=== PATIENT | female | born 1965 | race Caucasian/White ===

== ENCOUNTER 2020-03-07 13:44 | Outpatient (REF) | payer BC, SELFPAY | END 2020-03-07 13:45 | disposition home or self-care (01) | LOC: HO.HMGCLDS 13:44 | PROVIDERS: PCP Internal Medicine; Visit Provider Internal Medicine | DX: Z20.828 Contact with and (suspected) exposure to other viral communicable diseases (principal) | CPT/HCPCS: C9803; U0003 ==

== ENCOUNTER 2020-03-09 07:55 | Outpatient (REF) | payer BC, SELFPAY ==
[2020-03-09 12:26] LABS: Anion Gap 12 (12-20); Blood Urea Nitrogen 15 mg/dL (9-16); Calcium 8.7 mg/dL (8.4-10.2); Carbon Dioxide 27 mmol/L (22-29); Chloride 101 mmol/L (96-108); Cholesterol 169 mg/dL; Estimated Glomerular Filt Rate > 60; Glucose Fasting 121 mg/dL (60-99); HDL Cholesterol 59 mg/dL; LDL Cholesterol Calculated 92 mg/dl; Potassium 4.3 mmol/l (3.3-5.1); Sodium 136 mmol/L (135-145); Triglycerides 92 mg/dL
[2020-03-09 12:43] LABS: Estimated Average Glucose 137 mg/dL; Hemoglobin A1C 149.7031 umol/L; Hemoglobin A1c % 6.4 %
[2020-03-09 12:53] LABS: Creatinine Urine 48.34 mg/dL; Microalbum/Creatinine Ratio Ur 248.2 ug/mg cr
== END 2020-03-09 07:56 | disposition home or self-care (01) ==
LOC: HO.HMGCLDS 07:55
PROVIDERS: PCP Internal Medicine; Visit Provider Internal Medicine
DX: I10 Essential (primary) hypertension (principal); E78.9 Disorder of lipoprotein metabolism, unspecified; E13.9 Other specified diabetes mellitus without complications; Z91.09 Other allergy status, other than to drugs and biological substances
CPT/HCPCS: 80048; 80061; 82043; 83036

== ENCOUNTER 2020-08-07 13:01 | Outpatient (REF) | payer BC, SELFPAY | END 2020-08-07 13:02 | disposition home or self-care (01) | LOC: HO.HMGCLDS 13:01 | PROVIDERS: PCP Internal Medicine; Visit Provider Internal Medicine | DX: Z20.822 Contact with and (suspected) exposure to COVID-19 (principal) | CPT/HCPCS: C9803; U0003; U0005 ==

== ENCOUNTER → 2020-09-11 09:20 | Outpatient (REF) | payer BC, SELFPAY ==
--- NOTE | 2020-09-11 09:43 | CA_ITS ---
Transthoracic Echocardiogram Patient (Last, First, Middle): Irasema Lauren, Gender: Female Date of : 1965 Age: 54 Procedure Date: 09/11/2020 Procedure Type: Transthoracic Echocardiogram Location: OP Height: 162.56 cm Weight: 90.72 kg BSA: 1.96 m2 Heart Rate: bpm BP: 130 / 78 mmHg Software Packager: CASEY Referring MD: Jaqui Fofana MD Symptoms: R00.0 - Tachycardia, unspecified Study Quality: Fair ECG Rhythm: Sinus Conclusions: - The left ventricular systolic function is normal. The visually estimated ejection fraction is between 60-65%. - There is mild calcification of the aortic valve. - There is mild mitral annular calcification. Findings Procedure Information The patient declines contrast. Left Ventricle Normal left ventricular cavity size. There is normal left ventricular wall thickness. The left ventricular systolic function is normal. The visually estimated ejection fraction is between 60-65%. There is no evidence of regional wall motion abnormalities. Diastolic function is normal for age. Right Ventricle Normal right ventricular cavity size and systolic function. Atria Both atria are normal in size. Aortic Valve There is a normal trileaflet aortic valve. There is mild calcification of the aortic valve. There is no aortic valve stenosis. There is no aortic valve regurgitation. Mitral Valve There is mild mitral annular calcification. There is trace mitral valve regurgitation. There is no mitral valve stenosis. Pulmonic Valve The pulmonic valve was not well visualized. Tricuspid Valve Normal tricuspid valve structure. There is trace tricuspid valve regurgitation. The pulmonary artery systolic pressure is normal. Great Vessels The aortic annulus, sinuses of valsalva, and asc aorta are normal in size. Venous The inferior vena cava is normal in size and collapses greater than 50% with inspiration. Pericardium/Pleural There is no evidence of pericardial effusion. Prior Study Comparison No prior study available for comparison. Measurements 2D Linear Measurements IVSd: 0.80 0.6-0.9/0.6-1.0 cm LVIDd: 4.01 3.9-5.3/4.2-5.9 cm LVIDd Index: 2.05 2.4-3.2/2.2-3.1 cm/m2 LVIDs: 2.33 2.0-3.6 cm LVPWd: 0.82 0.7-1.1 cm Ao Root: 3.00 2.1-3.5 cm LA Diam: 3.50 2.7-3.8/3.0-4.0 cm LAIDs Index: 1.79 1.5-2.3 cm/m2 LV Mass: 118.43 67-162/88-224 g LV Mass Index: 60.42 43-95/49-115 g/m2 LVOT Diam: 2.00 3.0+(-)1.3 cm Mitral Valve MV Pk E: 1.19 MV PK A: 1.16 MV Decel Time: 191.00 E/A: 1.00 E'Lateral: 10.40 E'Medial: 8.16 E/E' Med: 14.60 E/E' Lat: 11.40 PHT: 56.00 MVA PHT: 3.93 Decel Tate: 6.23 Aortic Valve AoV Pk Leonardo: 1.68 AoV Mn Leonardo: 1.12 AoV VTI: 0.30 AoV Pk Grad: 11.00 Aov Mn Grad: 6.00 DELORES Cont.VTI: 2.73 LVOT LVOT Pk Leonardo: 1.50 LVOT Mn Leonardo: 1.00 LVOT VTI: 0.26 LVOT Pk Grad: 9.00 LVOT Mn Grad: 5.00 LVOT Diam: 2.00 LVOT Area: 3.14 Diastolic Function MV Pk E: 1.19 MV Pk A: 1.16 E/A: 1.00 E'Medial: 8.16 E/E' Med: 14.60 E' Laterial: 10.40 E/E' Lat: 11.40 Tricuspid Valve TR Pk Leonardo: 1.67 TR Pk Grad: 11.00 RA Press: 3.00 RVSP: 14.00 Great Vessels Aorta Ao Root-2D: 3.00 2.0-3.7 cm Ao Asc: 2.90 2.1-3.4 cm Updated in Other Vendor System with Status of Final Walter Orozco MD electronically signed on 09/11/2020 12:00:43 PM with status of Final
== END ==
LOC: HO.CARD 09:20
PROVIDERS: PCP Internal Medicine; Visit Provider Internal Medicine
DX: R00.0 Tachycardia, unspecified (principal); I10 Essential (primary) hypertension
CPT/HCPCS: 93306

== ENCOUNTER 2021-01-03 13:50 | Outpatient (REF) | payer BC, SELFPAY | END 2021-01-03 13:51 | disposition home or self-care (01) | LOC: HO.HMGCLDS 13:50 | PROVIDERS: PCP Internal Medicine; Visit Provider Internal Medicine | DX: Z13.89 Encounter for screening for other disorder (principal) ==

== ENCOUNTER 2021-01-08 07:19 | Outpatient (REF) | payer BC, SELFPAY ==
[2021-01-08 11:25] LABS: MANUAL DIFF FLAG NO
[2021-01-08 11:42] LABS: Basophils Percent Auto 0.5 % (0-2); Eosinophils Absolute Auto 0.2 X10*3/uL (0.0-0.4); Eosinophils Percent Auto 2.2 % (0-4); Hematocrit 36.1 % (37-47); Hemoglobin 11.9 g/dl (12.0-16.0); Imm Gran Abs Auto 0.02 X10*3/uL (0.00-0.03); Imm Gran Pct Auto 0.3 % (0.0-0.4); Lymphocytes Absolute Auto 2.3 X10*3/uL (1.2-4.9); Mean Corpuscular Hemoglobin 28.4 pg (27.0-33.0); Mean Corpuscular Volume 86.2 fL (80-98); Mean Platelet Volume 10.1 fL (9.4-12.3); Monocytes Absolute Auto 0.7 X10*3/uL (0.1-1.2); Monocytes Percent Auto 8.6 % (2-11); Neutrophils Absolute Auto 4.4 X10*3/uL (2.0-8.3); Neutrophils Percent Auto 58.4 % (45-73); Platelet Count 228 X10*3/uL (160-400); Red Blood Count 4.19 X10*6/uL (4.20-5.50); Red Cell Distribution Width 13.5 % (11.0-16.0); White Blood Count 7.6 X10*3/uL (4.8-10.8)
[2021-01-08 12:33] LABS: Alanine Aminotransferase 25 U/L (0-31); Albumin Level 4.1 g/dL (3.5-5.0); Alkaline Phosphatase 97 U/L (39-117); Anion Gap 13 (12-20); Aspartate Amino Transferase 27 U/L (5-31); Bilirubin Direct 0.2 mg/dL (0.0-0.5); Bilirubin Total 0.3 mg/dL (0.0-1.0); Blood Urea Nitrogen 14 mg/dL (9-16); Calcium 9.2 mg/dL (8.4-10.2); Carbon Dioxide 24 mmol/L (22-29); Chloride 104 mmol/L (96-108); Estimated Glomerular Filt Rate > 60; Glucose Random 131 mg/dL (60-115); Potassium 4.4 mmol/L (3.3-5.1); Sodium 137 mmol/L (135-145); Total Protein 6.6 g/dL (6.5-8.0)
[2021-01-08 12:47] LABS: Creatinine Urine 84.43 mg/dL; Microalbum/Creatinine Ratio Ur 215.5 ug/mg cr
[2021-01-08 13:03] LABS: Estimated Average Glucose 131 mg/dL; Hemoglobin A1c % 6.2 %
[2021-01-09 14:12] LABS: LDL Cholesterol Direct 97 mg/dL (<100)
== END 2021-01-08 07:20 | disposition home or self-care (01) ==
LOC: HO.HMGCLDS 07:19
PROVIDERS: PCP Internal Medicine; Visit Provider Internal Medicine
DX: R00.0 Tachycardia, unspecified (principal); I10 Essential (primary) hypertension; E13.9 Other specified diabetes mellitus without complications; E78.9 Disorder of lipoprotein metabolism, unspecified; Z91.09 Other allergy status, other than to drugs and biological substances
CPT/HCPCS: 36415; 80053; 82043; 82248; 83036; 83721; 85025

== ENCOUNTER 2021-07-04 11:15 | Outpatient (REF) | payer BC, SELFPAY ==
[2021-07-04 14:16] LABS: Creatinine Urine 135.54 mg/dL; Microalbum/Creatinine Ratio Ur 319.4 ug/mg cr
[2021-07-04 14:18] LABS: Estimated Average Glucose 137 mg/dL; Hemoglobin A1c % 6.4 %
[2021-07-04 14:27] LABS: Alanine Aminotransferase 29 U/L (0-31); Albumin Level 4.3 g/dL (3.5-5.0); Alkaline Phosphatase 116 U/L (39-117); Anion Gap 12 (12-20); Aspartate Amino Transferase 31 U/L (5-31); Bilirubin Total 0.4 mg/dL (0.0-1.0); Blood Urea Nitrogen 19 mg/dL (9-16); Carbon Dioxide 24 mmol/L (22-29); Chloride 104 mmol/L (96-108); Estimated Glomerular Filt Rate > 60; Glucose Random 134 mg/dL (60-115); Potassium 4.4 mmol/L (3.3-5.1); Sodium 136 mmol/L (135-145); Total Protein 7.2 g/dL (6.5-8.0)
[2021-07-04 14:32] LABS: TSH reflex Free T4 4.78 uIU/mL (0.32-4.0)
[2021-07-04 14:52] LABS: Calcium 9.7 mg/dL (8.4-10.2)
[2021-07-04 15:49] LABS: Free T4 (Free Thyroxine) 1.13 ng/dL (0.71-1.85)
[2021-07-05 07:21] LABS: LDL Cholesterol Direct 97 mg/dL (<100)
== END 2021-07-04 11:16 | disposition home or self-care (01) ==
LOC: HO.HMGCLDS 11:15
PROVIDERS: Visit Provider Internal Medicine
DX: Z00.01 Encounter for general adult medical examination with abnormal findings (principal); E10.29 Type 1 diabetes mellitus with other diabetic kidney complication; E78.9 Disorder of lipoprotein metabolism, unspecified; I10 Essential (primary) hypertension; R80.9 Proteinuria, unspecified; Z91.09 Other allergy status, other than to drugs and biological substances
CPT/HCPCS: 36415; 80053; 82043; 83036; 83721; 84439; 84443

== ENCOUNTER 2021-07-30 11:56 | Outpatient (REF) | payer BC, SELFPAY ==
[2021-07-30 14:14] LABS: Anion Gap 16 (12-20); Blood Urea Nitrogen 17 mg/dL (9-16); Calcium 9.7 mg/dL (8.4-10.2); Carbon Dioxide 23 mmol/L (22-29); Chloride 103 mmol/L (96-108); Estimated Glomerular Filt Rate > 60; Glucose Random 142 mg/dL (60-115); Potassium 4.5 mmol/L (3.3-5.1); Sodium 137 mmol/L (135-145)
[2021-07-30 15:21] LABS: Free T4 (Free Thyroxine) 0.97 ng/dL (0.71-1.85)
== END 2021-07-30 11:57 | disposition home or self-care (01) ==
LOC: HO.HMGCLDS 11:56
PROVIDERS: PCP Internal Medicine; Visit Provider Internal Medicine
DX: E13.9 Other specified diabetes mellitus without complications (principal); E78.9 Disorder of lipoprotein metabolism, unspecified; I10 Essential (primary) hypertension; R00.0 Tachycardia, unspecified; Z91.09 Other allergy status, other than to drugs and biological substances; R79.89 Other specified abnormal findings of blood chemistry
CPT/HCPCS: 36415; 80048; 84439; 84443

== ENCOUNTER 2021-10-08 11:16 | Outpatient (REF) | payer BC, SELFPAY | END 2021-10-08 11:17 | disposition home or self-care (01) | LOC: HO.HMGCLDS 11:16 | PROVIDERS: Visit Provider Internal Medicine | DX: Z13.89 Encounter for screening for other disorder (principal) ==

== ENCOUNTER 2021-10-09 09:35 | Outpatient (REF) | payer BC, SELFPAY ==
[2021-10-09 11:57] LABS: Estimated Average Glucose 134 mg/dL; Hemoglobin A1c % 6.3 %
[2021-10-09 12:21] LABS: TSH reflex Free T4 3.75 uIU/mL (0.32-4.0)
[2021-10-09 12:56] LABS: Alanine Aminotransferase 26 U/L (0-31); Albumin Level 4.3 g/dL (3.5-5.0); Alkaline Phosphatase 105 U/L (39-117); Anion Gap 13 (12-20); Aspartate Amino Transferase 26 U/L (5-31); Bilirubin Total 0.4 mg/dL (0.0-1.0); Blood Urea Nitrogen 16 mg/dL (9-16); Calcium 9.1 mg/dL (8.4-10.2); Carbon Dioxide 23 mmol/L (22-29); Chloride 104 mmol/L (96-108); Estimated Glomerular Filt Rate > 60; Glucose Random 165 mg/dL (60-115); Potassium 4.1 mmol/L (3.3-5.1); Sodium 136 mmol/L (135-145)
[2021-10-11 08:21] LABS: LDL Cholesterol Direct 93 mg/dL (<100)
== END 2021-10-09 09:36 | disposition home or self-care (01) ==
LOC: HO.HMGCLDS 09:35
PROVIDERS: Visit Provider Internal Medicine
DX: E13.9 Other specified diabetes mellitus without complications (principal); E78.9 Disorder of lipoprotein metabolism, unspecified; I10 Essential (primary) hypertension; R79.89 Other specified abnormal findings of blood chemistry
CPT/HCPCS: 36415; 80053; 83036; 83721; 84443

== ENCOUNTER 2022-07-10 13:12 | Outpatient (REF) | payer OTHER, SELFPAY ==
[2022-07-10 16:31] LABS: MANUAL DIFF FLAG NO
[2022-07-10 16:42] LABS: Basophils Percent Auto 0.3 % (0-2); Eosinophils Absolute Auto 0.1 X10*3/uL (0.0-0.4); Eosinophils Percent Auto 1.1 % (0-4); Hematocrit 38.3 % (37.0-47.0); Hemoglobin 12.9 g/dl (12.0-16.0); Imm Gran Abs Auto 0.02 X10*3/uL (0.00-0.03); Imm Gran Pct Auto 0.3 % (0.0-0.4); Lymphocytes Absolute Auto 1.5 X10*3/uL (1.2-4.9); Lymphocytes Percent Auto 19.3 % (20-40); Mean Corpuscular HGB Conc 33.7 g/dl (31.0-35.0); Mean Corpuscular Hemoglobin 28.4 pg (27.0-33.0); Mean Corpuscular Volume 84.4 fL (80.0-98.0); Mean Platelet Volume 10.2 fL (9.4-12.3); Monocytes Absolute Auto 0.6 X10*3/uL (0.1-1.2); Neutrophils Absolute Auto 5.6 x10*3/uL (2.0-8.3); Platelet Count 228 X10*3/uL (160-400); Red Blood Count 4.54 X10*6/uL (4.20-5.50); Red Cell Distribution Width 13.4 % (11.0-16.0); White Blood Count 7.9 X10*3/uL (4.8-10.8)
[2022-07-10 16:49] LABS: Estimated Average Glucose 134 mg/dL; Hemoglobin A1c % 6.3 %
[2022-07-10 17:01] LABS: Alanine Aminotransferase 23 U/L (0-31); Albumin Level 4.2 g/dL (3.5-5.0); Alkaline Phosphatase 99 U/L (39-117); Anion Gap 13 (12-20); Aspartate Amino Transferase 28 U/L (5-31); Bilirubin Total 0.4 mg/dL (0.0-1.0); Blood Urea Nitrogen 15 mg/dL (9-16); Calcium 9.3 mg/dL (8.4-10.2); Carbon Dioxide 25 mmol/L (22-29); Chloride 105 mmol/L (96-108); Estimated Glomerular Filt Rate > 60; Glucose Random 145 mg/dL (60-115); Potassium 4.7 mmol/L (3.3-5.1); Sodium 138 mmol/L (135-145); Total Protein 6.8 g/dL (6.5-8.0)
[2022-07-10 17:17] LABS: TSH reflex Free T4 3.19 uIU/mL (0.32-4.0)
[2022-07-12 00:09] LABS: LDL Cholesterol Direct 102 mg/dL (<100)
== END 2022-07-10 13:13 | disposition home or self-care (01) ==
LOC: HO.HMGCLDS 13:12
PROVIDERS: PCP Internal Medicine; Visit Provider Internal Medicine
DX: E03.8 Other specified hypothyroidism (principal); E10.29 Type 1 diabetes mellitus with other diabetic kidney complication; E66.09 Other obesity due to excess calories; E78.9 Disorder of lipoprotein metabolism, unspecified; I10 Essential (primary) hypertension; R80.9 Proteinuria, unspecified
CPT/HCPCS: 36415; 80053; 83036; 83721; 84443; 85025

== ENCOUNTER 2023-02-12 13:24 | Outpatient (AMB) | payer OTHER, SELFPAY ==
--- NOTE | 2023-02-12 13:26 | A.OFFPC_ITS ---
Vital Signs 3 02/12/23 13:27 Height 5 ft 1 in Weight 199 lb BMI 37.6 BP 128/70 Blood Pressure Location Lt brachial Position Sitting Pulse 92 Pulse Source Pulse Oximeter Pulse Oximetry (%) 99 Oxygen Delivery Method Room Air Intake Visit Reasons: 3 MON FUP DM- NEEDS PHQ-9 Allergies No Known Drug Allergies [NO KNOWN DRUG ALLERGIES] Allergy (Mild, Verified 02/12/23 13:26) NONE Seasonal Allergy (Unknown, Uncoded 07/04/21 10:52) unknown Medication List - Last Reconciled 02/12/23 by Jaqui Fofana MD amlodipine 10 mg PO DAILY ezetimibe 10 mg PO DAILY glipizide-metformin 2.5-250 mg 1 tab PO DAILY levothyroxine 25 mcg PO DAILY 90 days lisinopril 40 mg PO DAILY pravastatin 40 mg PO DAILY 90 days Tobacco use date assessed: 02/12/23 Dental Screening Dental Screen Date: 02/12/23 Did you have a dental visit in the last 12 months?: No Did you have a dental problem in the last 6 months where you did not have access to dental care?: No Was dental information given to patient?: Patient has dentist HPI 3 MON FUP DM- NEEDS PHQ-9 2 HPI0 Details Patient is a 57-year-old female came in today for follow-up appointment She has lost her recently 2 liver cancer, patient is going through a rough time and is grieving Feeling depressed and cry easily. She does have a family support I am starting her on Lexapro 10 mg daily She said that she will be seeing a therapist her daughter is going to make the appointment. Hypertension: Blood pressure is stable patient is on amlodipine 10 mg, and lisinopril 40 mg, tolerating medication no side effects. Diabetes mellitus: Continue glipizide metformin 2.5 mg-250 mg once a day she is due for hemoglobin A1c Hypothyroidism: TSH stable with levothyroxine 25 mg Lipid disorder: Patient is on pravastatin 40 mg and diet-controlled along with Zetia. BMI is elevated, patient is having difficulty losing weight. Follow-up 3 months Labs to be done today Flu vaccine was given today [facility] Medical History Diabetes 1.5, managed as type 2 Environmental allergies Hypertension, essential Lipid disorder Surgical History History of section Family History Father Rheumatoid arthritis Mother HTN (hypertension) CVD (cardiovascular disease) Diabetes mellitus Brother No problems noted. Daughter No problems noted. Daughter No problems noted. Maternal Grandfather No problems noted. Maternal Grandmother No problems noted. Paternal Grandfather No problems noted. Paternal Grandmother No problems noted. Social History Housing: Apartment Alcohol intake: former Patient Tobacco Use Status: Never used Tobacco e-Cigarette/Vaping Use: Never Used service: No Current occupational status: unemployed and other (homemaker) Cognitive needs: No Hearing needs: No Vision needs: Yes Questionnaire PHQ-9 Over the last 2 weeks, how often have you been bothered by any of the following problems? 1. Little interest or pleasure in doing things: more than half the days 2. Feeling down, depressed, or hopeless: more than half the days 3. Trouble falling or staying asleep, or sleeping too much: more than half the days 4. Feeling tired or having little energy: more than half the days 5. Poor appetite or overeating: not at all 6. Feeling bad about yourself - or that you are a failure or have let yourself or your family down: more than half the days 7. Trouble concentrating on things, such as reading the newspaper or watching television: not at all 8. Moving or speaking so slowly that other people could have noticed. Or the opposite - being so fidgety or restless that you have been moving around a lot more than usual: not at all 9. Thoughts that you would be better off or of hurting yourself in some way: not at all Total score: 10 Depression Screening Interpretation: Positive Depression Screening Follow-up: Existing condition and In treatment Depression Screening Done: Yes 15066 - PHQ-9 Billing: Yes Source: Developed by Drs. Orlin Bone, Kalani Gregory, Liang Littlejohn and colleagues, with an educational jeffrey from [employer]. Thrive Questionnaire Date Thrive assessed: 02/12/23 I am a: Patient What is your living situation today?: I have a steady place to live Within the past 12 months, did the food you bought not last and you didn't have the money to get more?: Never true Within the past 12 months, did you worry whether your food would run out before you got money to buy more?: Never true Do you have trouble paying for medicines?: No Do you have trouble getting transportation to medical appointments?: Yes Do you have trouble paying your heating and electricity bill?: No Do you have trouble taking care of your child, family member or friend?: No Do you have trouble with day-to-day activities such as bathing, preparing meals, shopping, managing finances, etc.?: No Are you currently unemployed and looking for a job?: Yes Are you interested in more education?: No AUDIT C Alcohol Use Questionnaire (AUDIT-C) 1. How often do you have a drink containing alcohol?: Never 3. How often do you have six or more drinks on one occasion?: Never Total Score: 0 Score Reviewed/Action Taken: Yes MAIDA-7 AMB Questionnaire MAIDA-7 Date MAIDA - 7 assessed: 02/12/23 Feeling nervous, anxious, or on edge: 3 = Nearly every day Not being able to stop or control worryin = Nearly every day Worrying too much about different things: 3 = Nearly every day Trouble relaxin = More than half the days Being so restless that it is hard to sit still: 3 = Nearly every day Becoming easily annoyed or irritable: 3 = Nearly every day Feeling afraid as if something awful might happen: 0 = Not at all Total MAIDA-7 score (0-4 normal; 5-9 mild; 10-14 moderate; 15-21 severe): 17 Source: Developed by Drs. Orlin Bone, Kalani Gregory, Liang Littlejohn and colleagues, with an educational jeffrey from [employer]. MAIDA-7 Assessment Billing MAIDA-7 Assessment Tool: MAIDA-7 Assessment 63939 Review of Systems Const Denies chills and Denies fever(s) ENT Denies epistaxis and Denies nasal discharge Card Denies chest pain Resp Denies chest congestion, Denies cough and Denies hemoptysis GI Denies diarrhea and Denies nausea Skin/Breast Denies rash Neuro Reports no additional complaints Psych Reports no additional complaints Endo Reports no additional complaints Physical exam (Primary Care) Vital Signs: Last Vital Signs Pulse 92 02/12/23 13:27 BP 128/70 02/12/23 13:27 Pulse Ox 99 02/12/23 13:27 Oxygen Delivery Method Room Air 02/12/23 13:27 BMI result Body Mass Index 37.6 Tobacco/Smoking Status: Tobacco use Status Tobacco use date assessed 02/12/23 02/12/23 13:27 Patient Tobacco Use Status Never used Tobacco 02/12/23 13:27 e-Cigarette/Vaping Use Never Used 02/12/23 13:27 PHQ-9: PHQ-9 Score PHQ-9: Total score 10 02/12/23 14:17 Depression Screening Interpretation: Positive Depression Screening Follow-up: Existing condition and In treatment Thrive Assessment: Date of Thrive Assessment Date Thrive assessed 02/12/23 02/12/23 14:17 Const General: cooperative, comfortable and no acute distress Orientation/consciousness: patient oriented x3 HENMT Head: Yes normocephalic Eyes General: appearance normal, both eyes and all related structures Neck Neck: Yes supple Neck images: 2 1. Large scalp cyst Resp Effort & Inspection: normal respiratory effort, no cough and no stridor Cardio Rhythm: regular rhythm Heart sounds: S1 normal heart sound present and S2 normal heart sound present Skin General skin exam: turgor normal Neuro General: patient oriented x3, tone normal and moves all extremities Extrem Right lower extremity: no edema Left lower extremity: no edema Office Procedures Flu Questionnaire Does the patient have a severe egg allergy?: No Does the patient have severe life threatening allergies?: No Does the patient have a fever or illness today?: No Has the patient ever had Guillain-[place]bardston Syndrome?: No Has the patient ever had any past reaction to a flu shot?: No Immunizations flu vacc [id number] 6mos up(PF) 60 mcg(15 mcgx4)/0.5 mL IM syringe Performing Provider: Jaqui Fofana MD [place] [facility] [place] [facility] Administered by: Jhoan Winn CMA on 02/12/23 13:56 2 Dose Route Admin Location Dispensed Lot Number Expiration Date N[employer] Photography Intern 0.5 mL IM Right Deltoid 0.5 mL [id number] 10/19/23 [id number] Powerset 2 VIS Given Date VIS Provided VIS Publication Date 02/12/23 Single Vaccine 20 Eligibility Eligibility Date Funding Source Not [facility] Eligible 02/12/23 Private Assessment and Plan Assessment & Plan (1) Diabetes 1.5, managed as type 2: Code(s): E13.9 - Other specified diabetes mellitus without complications (2) Lipid disorder: Code(s): E78.9 - Disorder of lipoprotein metabolism, unspecified (3) Hypertension, essential: Code(s): I10 - Essential (primary) hypertension (4) Environmental allergies: Code(s): Z91.09 - Other allergy status, other than to drugs and biological substances (5) Microalbuminuria due to type 1 diabetes mellitus: Code(s): E10.29 - Type 1 diabetes mellitus with other diabetic kidney complication; R80.9 - Proteinuria, unspecified (6) Other specified hypothyroidism: Code(s): E03.8 - Other specified hypothyroidism (7) Obesity due to excess calories: Code(s): E66.09 - Other obesity due to excess calories Qualifiers: Body mass index: BMI 37.0-37.9 Obesity classification: adult class 2 (BMI 35 - 39.9) Serious obesity comorbidity presence: with serious comorbidity Qualified Code(s): E66.01 - Morbid (severe) obesity due to excess calories; Z68.37 - Body mass index [BMI] 37.0-37.9, adult (8) Scalp cyst: Code(s): L72.9 - Follicular cyst of the skin and subcutaneous tissue, unspecified (9) Depression, major, single episode, moderate: Code(s): F32.1 - Major depressive disorder, single episode, moderate (10) Bereavement reaction: Code(s): F43.20 - Adjustment disorder, unspecified; Z63.4 - Disappearance and of family member Plan Patient is a 57-year-old female came in today for follow-up appointment She has lost her recently 2 liver cancer, patient is going through a rough time and is grieving Feeling depressed and cry easily. She does have a family support I am starting her on Lexapro 10 mg daily She said that she will be seeing a therapist her daughter is going to make the appointment. Hypertension: Blood pressure is stable patient is on amlodipine 10 mg, and lisinopril 40 mg, tolerating medication no side effects. Diabetes mellitus: Continue glipizide metformin 2.5 mg-250 mg once a day she is due for hemoglobin A1c Patient is due for microalbumin check Hypothyroidism: TSH stable with levothyroxine 25 mg Lipid disorder: Patient is on pravastatin 40 mg and diet-controlled along with Zetia. BMI is elevated, patient is having difficulty losing weight. Patient has developed large cyst on her scalp that need to be removed Patient says that she had a similar cyst before as well which was removed the past Follow-up 3 months Labs to be done today Flu vaccine was given today Orders: Orders 2 Hemoglobin A1c Today E03.8 - Other specified hypothyroidism, E10.29 - Type 1 diabetes mellitus with other diabetic kidney complication, E13.9 - Other specified diabetes mellitus without complications, E66.09 - Other obesity due to excess calories, E78.9 - Disorder of lipoprotein metabolism, unspecified, I10 - Essential (primary) hypertension, R80.9 - Proteinuria, unspecified, Z91.09 - Other allergy status, other than to drugs and biological substances LDL Cholesterol Direct Today E03.8 - Other specified hypothyroidism, E10.29 - Type 1 diabetes mellitus with other diabetic kidney complication, E13.9 - Other specified diabetes mellitus without complications, E66.09 - Other obesity due to excess calories, E78.9 - Disorder of lipoprotein metabolism, unspecified, I10 - Essential (primary) hypertension, R80.9 - Proteinuria, unspecified, Z91.09 - Other allergy status, other than to drugs and biological substances TSH reflex Free T4 Today E03.8 - Other specified hypothyroidism Influenza [id number] Immunization Today Z23 - Encounter for immunization Complete Blood Count Auto Diff Today E03.8 - Other specified hypothyroidism, E10.29 - Type 1 diabetes mellitus with other diabetic kidney complication, E13.9 - Other specified diabetes mellitus without complications, E66.09 - Other obesity due to excess calories, E78.9 - Disorder of lipoprotein metabolism, unspecified, I10 - Essential (primary) hypertension, R80.9 - Proteinuria, unspecified, Z91.09 - Other allergy status, other than to drugs and biological substances Comprehensive Met. Panel Today E03.8 - Other specified hypothyroidism, E10.29 - Type 1 diabetes mellitus with other diabetic kidney complication, E13.9 - Other specified diabetes mellitus without complications, E66.09 - Other obesity due to excess calories, E78.9 - Disorder of lipoprotein metabolism, unspecified, I10 - Essential (primary) hypertension, R80.9 - Proteinuria, unspecified, Z91.09 - Other allergy status, other than to drugs and biological substances Microalbumin, Random (w Creat) Today E03.8 - Other specified hypothyroidism, E10.29 - Type 1 diabetes mellitus with other diabetic kidney complication, E13.9 - Other specified diabetes mellitus without complications, E66.09 - Other obesity due to excess calories, E78.9 - Disorder of lipoprotein metabolism, unspecified, I10 - Essential (primary) hypertension, R80.9 - Proteinuria, unspecified, Z91.09 - Other allergy status, other than to drugs and biological substances Referrals 2 General Surgery Referral L72.9 - Follicular cyst of the skin and subcutaneous tissue, unspecified Medications: New 2 escitalopram oxalate (Lexapro) 10 mg PO DAILY 90 tabs 0RF Coding Level of Care Code Est Pt Level 4 (31939) Diagnoses Diabetes 1.5, managed as type 2 E13.9 Lipid disorder E78.9 Hypertension, essential I10 Environmental allergies Z91.09 Microalbuminuria due to type 1 diabetes mellitus E10.29; R80.9 Other specified hypothyroidism E03.8 Class 2 severe obesity due to excess calories with serious comorbidity and body mass index (BMI) of 37.0 to 37.9 in adult E66.01; Z68.37 Body mass index: BMI 37.0-37.9 Obesity classification: adult class 2 (BMI 35 - 39.9) Serious obesity comorbidity presence: with serious comorbidity Scalp cyst L72.9 Depression, major, single episode, moderate F32.1 Bereavement reaction F43.20; Z63.4 Additional Codes MAIDA-7 Assessment Billing - MAIDA-7 Assessment Tool: MAIDA-7 Assessment 60161 ([id number])
[2023-02-12 13:27] VITALS: BP 128/70; PULSE 92; O2SAT 99; BMI 37.6
== END 2023-02-12 15:39 | disposition home or self-care (01) ==
PROVIDERS: PCP Internal Medicine; Visit Provider Internal Medicine
DX: Z23 Encounter for immunization (principal)
CPT/HCPCS: 90471; 90686; 99214

== ENCOUNTER 2023-02-12 13:52 | Outpatient (REF) | payer OTHER, SELFPAY ==
[2023-02-12 16:17] LABS: MANUAL DIFF FLAG NO
[2023-02-12 16:35] LABS: Basophils Absolute Auto 0.1 X10*3/uL (0.0-0.2); Basophils Percent Auto 0.5 % (0-2); Eosinophils Absolute Auto 0.2 X10*3/uL (0.0-0.4); Eosinophils Percent Auto 2.1 % (0-4); Hematocrit 40.2 % (37.0-47.0); Hemoglobin 13.3 g/dl (12.0-16.0); Imm Gran Abs Auto 0.03 X10*3/uL (0.00-0.03); Imm Gran Pct Auto 0.3 % (0.0-0.4); Lymphocytes Absolute Auto 1.9 X10*3/uL (1.2-4.9); Lymphocytes Percent Auto 19.4 % (20-40); Mean Corpuscular HGB Conc 33.1 g/dl (31.0-35.0); Mean Corpuscular Hemoglobin 28.4 pg (27.0-33.0); Mean Corpuscular Volume 85.7 fL (80.0-98.0); Mean Platelet Volume 10.3 fL (9.4-12.3); Monocytes Absolute Auto 0.7 X10*3/uL (0.1-1.2); Neutrophils Absolute Auto 6.8 x10*3/uL (2.0-8.3); Neutrophils Percent Auto 70.7 % (45-73); Platelet Count 238 X10*3/uL (160-400); Red Blood Count 4.69 X10*6/uL (4.20-5.50); Red Cell Distribution Width 13.3 % (11.0-16.0); White Blood Count 9.6 X10*3/uL (4.8-10.8)
[2023-02-12 16:44] LABS: Estimated Average Glucose 123 mg/dL; Hemoglobin A1c % 5.9 % (<6.0)
[2023-02-12 16:54] LABS: Alanine Aminotransferase 34 U/L (0-31); Albumin Level 4.1 g/dL (3.5-5.0); Alkaline Phosphatase 94 U/L (39-117); Anion Gap 15 (12-20); Aspartate Amino Transferase 37 U/L (5-31); Bilirubin Total 0.3 mg/dL (0.0-1.0); Calcium 9.7 mg/dL (8.4-10.2); Carbon Dioxide 21 mmol/L (22-29); Chloride 104 mmol/L (96-108); Estimated Glomerular Filt Rate > 60; Glucose Random 122 mg/dL (60-115); Potassium 4.1 mmol/L (3.3-5.1); Sodium 136 mmol/L (135-145); Total Protein 7.4 g/dL (6.5-8.0)
[2023-02-12 17:08] LABS: Creatinine Urine 110.54 mg/dL; Microalbum/Creatinine Ratio Ur 307.5 ug/mg cr (<30); TSH reflex Free T4 3.02 uIU/mL (0.32-4.0)
[2023-02-12 17:53] LABS: Blood Urea Nitrogen 14 mg/dL (9-16)
[2023-02-14 00:29] LABS: LDL Cholesterol Direct 117 mg/dL (<100)
== END 2023-02-12 13:53 | disposition home or self-care (01) ==
LOC: HO.HMGCLDS 13:52
PROVIDERS: PCP Internal Medicine; Visit Provider Internal Medicine
DX: E10.29 Type 1 diabetes mellitus with other diabetic kidney complication (principal); E78.9 Disorder of lipoprotein metabolism, unspecified; I10 Essential (primary) hypertension; Z91.09 Other allergy status, other than to drugs and biological substances; R80.9 Proteinuria, unspecified; E03.8 Other specified hypothyroidism; E66.09 Other obesity due to excess calories
CPT/HCPCS: 36415; 80053; 82043; 82570; 83036; 83721; 84443; 85025

== ENCOUNTER 2023-02-24 10:46 | Outpatient (REF) | payer OTHER, SELFPAY | END 2023-02-24 10:47 | disposition home or self-care (01) | LOC: HO.LNP 10:46 | PROVIDERS: PCP Internal Medicine; Referring Provider Internal Medicine; Visit Provider Surgery | DX: L72.11 Pilar cyst (principal) | CPT/HCPCS: 11426; 88304 ==

== ENCOUNTER 2023-02-24 10:46 | Outpatient (AMB) | payer OTHER, SELFPAY ==
[2023-02-24 10:56] VITALS: BP 137/68; PULSE 107; BMI 37.2
--- NOTE | 2023-02-24 10:56 | A.OFFVIS_ITS ---
Intake Vital Signs 02/24/23 10:56 Height 5 ft 1 in Weight 197 lb BMI 37.2 BP 137/68 Blood Pressure Location Rt brachial Position Sitting Pulse 107 H Intake Visit Reasons: Pilar cyst~ scalp Intake Note: Patient referred for cyst on Rt vertex scalp. Present for 1yr. Enlarging, itchy. Bothersome when combing hair. Has a smaller size cyst on Rt lower post scalp. Would like to have it surgically excised while it is smaller in size. Conference Assistant Required: No Accompanied by: Self / Same As Patient Allergies No Known Drug Allergies [NO KNOWN DRUG ALLERGIES] Allergy (Mild, Verified 02/12/23 13:26) NONE Seasonal Allergy (Unknown, Uncoded 07/04/21 10:52) unknown Medication List - Last Reconciled 02/24/23 by Tomas Molina MD amlodipine 10 mg PO DAILY escitalopram oxalate (Lexapro) 10 mg PO DAILY ezetimibe 10 mg PO DAILY glipizide-metformin 2.5-250 mg 1 tab PO DAILY levothyroxine 25 mcg PO DAILY 90 days lisinopril 40 mg PO DAILY pravastatin 40 mg PO DAILY 90 days HPI HPI Comments History of Present Illness Details Patient presents with a vertex of scalp soft tissue mass. She has had this many years time. His increasing size, becoming more symptomatic. She was to have removed. Chart was reviewed patient evaluated [facility] Medical History Diabetes 1.5, managed as type 2 Environmental allergies Hypertension, essential Lipid disorder Surgical History History of section Family History Father Rheumatoid arthritis Mother HTN (hypertension) CVD (cardiovascular disease) Diabetes mellitus Brother No problems noted. Daughter No problems noted. Daughter No problems noted. Maternal Grandfather No problems noted. Maternal Grandmother No problems noted. Paternal Grandfather No problems noted. Paternal Grandmother No problems noted. Social History Housing: Apartment Alcohol intake: former Patient Tobacco Use Status: Never used Tobacco e-Cigarette/Vaping Use: Never Used service: No Current occupational status: unemployed and other (homemaker) Cognitive needs: No Hearing needs: No Vision needs: Yes Physical Exam Vital Signs: Last Vital Signs Pulse 107 H 02/24/23 10:56 BP 137/68 02/24/23 10:56 BMI result Body Mass Index 37.2 HEENT Other: Patient has approximately 5 x 4 cm soft tissue subcutaneous/soft tissue mass protruding from the vertex of her scalp. There is no hair growing in this area. Office Procedures Excision [id number] scalp/neck/hands/feet/genitalia >4cm Details: Risks, benefits, alternatives of excisional large vertex scalp mass were reviewed the patient included but not limited to bleeding, infection, recurrence, numbness, pain, scarring, wound dehiscence, seroma formation the patient wished to proceed. All questions were answered. Consent was signed. After appropriate positioning, patient had the vertex of scalp mass which measured approximately 5 x 4 cm prepped with Betadine and infiltrated 1% lidocaine. A longitudinal bi- elliptical incision was made around the mass in question carried down through skin, subcutaneous tissue, undermined and specimen sent to pathology . The wound Was irrigated, secured hemostasis, and closed using interrupted 2-0 Prolene sutures. Bacitracin applied. Patient tolerated procedure well. Procedure code (CPT) selection complete Office Meds lidocaine 1 %-epinephrine 1:100,000 injection solution Performing Provider: Tomas Molina MD Performing Location: [facility] [place] [facility] Administered by: Tomas Molina MD on 02/24/23 11:56 Dose Route Admin Location Dispensed Lot Number Expiration Date [facility] Automation Architect 20 mL Infiltration 20 mL Assessment & Plan Assessment & Plan (1) Scalp mass: Code(s): R22.0 - Localized swelling, mass and lump, head Plan: Patient has been given local instructions including ice to the wound pe riodically today and tomorrow, may shower, bacitracin to the wound each day, and patient will see me in approximately 1.5 weeks time or p.r.n. Orders: Orders AMB Excision Today R22.0 - Localized swelling, mass and lump, head Coding Level of Care Code New Pt Level 5 (79112) Diagnoses Scalp mass R22.0 CPT Codes Scalp/Neck/Hands/Feet/Genetalia - CPT: 53392-[id number] scalp/neck/hands/fee t/genitalia >4cm ([id number])
== END 2023-02-24 12:06 | disposition home or self-care (01) ==
PROVIDERS: PCP Internal Medicine; Referring Provider Internal Medicine; Visit Provider Surgery
DX: L72.11 Pilar cyst (principal)
CPT/HCPCS: 11426

== ENCOUNTER 2023-03-03 09:31 | Outpatient (AMB) | payer OTHER, SELFPAY ==
--- NOTE | 2023-03-03 09:33 | MHC.OFFVIS ---
Intake Vital Signs 03/03/23 09:38 Height 5 ft 1 in Weight 199 lb BMI 37.6 BP 136/72 Blood Pressure Location Rt brachial Position Sitting Pulse 107 H Intake Visit Reasons: S/p exc pilar cyst of scalp Intake Note: Patient here s/p exc on vertex scalp. Reports incision healing well but feels bumpy. Denies bleeding, oozing or pain. Allergies No Known Drug Allergies [NO KNOWN DRUG ALLERGIES] Allergy (Mild, Verified 03/03/23 09:38) NONE Seasonal Allergy (Unknown, Uncoded 03/03/23 09:38) unknown HPI HPI Comments History of Present Illness Details Patient presents for follow-up. She has mild incisional discomfort. Pathology is benign. [facility] Medical History Environmental allergies Hypertension, essential Lipid disorder Diabetes 1.5, managed as type 2 Surgical History Hx of surgical procedure (02/24/23) History of section Family History Father Rheumatoid arthritis Mother HTN (hypertension) CVD (cardiovascular disease) Diabetes mellitus Brother No problems noted. Daughter No problems noted. Daughter No problems noted. Maternal Grandfather No problems noted. Maternal Grandmother No problems noted. Paternal Grandfather No problems noted. Paternal Grandmother No problems noted. Social History Housing: Apartment Alcohol intake: former Patient Tobacco Use Status: Never used Tobacco e-Cigarette/Vaping Use: Never Used service: No Current occupational status: unemployed and other (homemaker) Cognitive needs: No Hearing needs: No Vision needs: Yes Physical Exam Vital Signs: Last Vital Signs Pulse 107 H 03/03/23 09:38 BP 136/72 03/03/23 09:38 BMI result Body Mass Index 37.6 HEENT Other: Wound is healing uneventfully. There is an eschar with a central part which . Sutures were removed without incident. Assessment & Plan Assessment & Plan (1) Scalp mass: Code(s): R22.0 - Localized swelling, mass and lump, head Plan Patient has been given local instructions, and will follow-up p.r.n. Coding Level of Care Code Global (48780) Diagnoses Scalp mass R22.0
[2023-03-03 09:38] VITALS: BP 136/72; PULSE 107; BMI 37.6
== END 2023-03-03 09:49 | disposition home or self-care (01) ==
PROVIDERS: PCP Internal Medicine; Visit Provider Surgery
DX: R22.0 Localized swelling, mass and lump, head (principal)
CPT/HCPCS: 99024

== ENCOUNTER → 2023-03-03 09:31 | Outpatient (BNVA) | payer OTHER, SELFPAY | PROVIDERS: PCP Internal Medicine; Visit Provider Surgery ==

== ENCOUNTER 2023-06-11 15:00 | Outpatient (AMB) | payer OTHER, SELFPAY ==
[2023-06-11 15:03] VITALS: BP 138/74; PULSE 101; O2SAT 98; BMI 38.7
--- NOTE | 2023-06-11 15:03 | A.OFFPC_ITS ---
Vital Signs 06/11/23 15:03 Height 5 ft 1 in Weight 205 lb BMI 38.7 BP 138/74 Blood Pressure Location Rt brachial Position Sitting Pulse 101 H Pulse Source Pulse Oximeter Pulse Oximetry (%) 98 Oxygen Delivery Method Room Air Intake Visit Reasons: Followup htn Allergies No Known Drug Allergies [NO KNOWN DRUG ALLERGIES] Allergy (Mild, Verified 06/11/23 15:03) NONE Seasonal Allergy (Unknown, Uncoded 03/03/23 09:38) unknown Tobacco use date assessed: 06/11/23 Dental Screening Dental Screen Date: 06/11/23 Did you have a dental visit in the last 12 months?: No Did you have a dental problem in the last 6 months where you did not have access to dental care?: No Was dental information given to patient?: No HPI Followup htn HPI Details Patient is a 57-year-old female came in today for follow-up appointment She has lost her recently secondary to liver cancer, patient is going through a rough time and is grieving Feeling depressed and cry easily. She does have a family support not financially She is seeing a therapist and medication prescriber Patient want to go on a disability, since I do not have any notes from therapist or psych med prescriber stating that patient is disabled due to psychiatric illness I am not able to fill any papers, I notified her, patient got very upset and v jaycee loud , our health out of school hours care worker was called in to talk to patient Therapist who was involved, we requested a letter of disability which they declined stating that they do not know the patient well We will see if we can provide patient with temporary disability due to her feeling anxious after passing of her I did started her on Lexapro 10 mg last visit which is helping her Still having difficulty sleeping and is taking a medication to sleep through psych med prescriber Hypertension: Blood pressure is stable patient is on amlodipine 10 mg, and lisinopril 40 mg, tolerating medication no side effects. Diabetes mellitus: Continue glipizide metformin 2.5 mg-250 mg once a day hemoglobin A1c is stable Hypothyroidism: TSH stable with levothyroxine 25 mg Lipid disorder: Patient is on pravastatin 40 mg and diet-controlled along with Zetia. BMI is elevated, patient is having difficulty losing weight. [facility] Medical History Environmental allergies Hypertension, essential Lipid disorder Diabetes 1.5, managed as type 2 Surgical History Hx of surgical procedure (02/24/23) History of section Family History Father Rheumatoid arthritis Mother HTN (hypertension) CVD (cardiovascular disease) Diabetes mellitus Brother No problems noted. Daughter No problems noted. Daughter No problems noted. Maternal Grandfather No problems noted. Maternal Grandmother No problems noted. Paternal Grandfather No problems noted. Paternal Grandmother No problems noted. Social History Housing: Apartment Alcohol intake: former Patient Tobacco Use Status: Never used Tobacco e-Cigarette/Vaping Use: Never Used service: No Current occupational status: unemployed and other (homemaker) Cognitive needs: No Hearing needs: No Vision needs: Yes Questionnaire PHQ-9 Over the last 2 weeks, how often have you been bothered by any of the following problems? 1. Little interest or pleasure in doing things: not at all 2. Feeling down, depressed, or hopeless: not at all 3. Trouble falling or staying asleep, or sleeping too much: not at all 4. Feeling tired or having little energy: not at all 5. Poor appetite or overeating: not at all 6. Feeling bad about yourself - or that you are a failure or have let yourself or your family down: not at all 7. Trouble concentrating on things, such as reading the newspaper or watching television: not at all 8. Moving or speaking so slowly that other people could have noticed. Or the opposite - being so fidgety or restless that you have been moving around a lot more than usual: not at all 9. Thoughts that you would be better off or of hurting yourself in some way: not at all Total score: 0 Depression Screening Interpretation: Negative Depression Screening Done: Yes 89562 - PHQ-9 Billing: Yes Source: Developed by Drs. Orlin Bone, Kalani Gregory, Liang Littlejohn and colleagues, with an educational jeffrey from [employer]. Thrive Questionnaire Date Thrive assessed: 06/11/23 I am a: Patient What is your living situation today?: I have a steady place to live Within the past 12 months, did the food you bought not last and you didn't have the money to get more?: Sometimes True Within the past 12 months, did you worry whether your food would run out before you got money to buy more?: Sometimes True Do you have trouble paying for medicines?: No Do you have trouble getting transportation to medical appointments?: No Do you have trouble paying your heating and electricity bill?: No Do you have trouble taking care of your child, family member or friend?: No Do you have trouble with day-to-day activities such as bathing, preparing meals, shopping, managing finances, etc.?: No Are you currently unemployed and looking for a job?: Yes Are you interested in more education?: No Please select the resources that you would like help with: None THRIVE Score: 2 AUDIT C Alcohol Use Questionnaire (AUDIT-C) 1. How often do you have a drink containing alcohol?: Never 3. How often do you have six or more drinks on one occasion?: Never Total Score: 0 Score Reviewed/Action Taken: Yes MAIDA-7 AMB Questionnaire MAIDA-7 Date MAIDA - 7 assessed: 06/11/23 Feeling nervous, anxious, or on edge: 3 = Nearly every day Not being able to stop or control worryin = More than half the days Worrying too much about different things: 2 = More than half the days Trouble relaxin = More than half the days Being so restless that it is hard to sit still: 2 = More than half the days Becoming easily annoyed or irritable: 3 = Nearly every day Feeling afraid as if something awful might happen: 0 = Not at all Total MAIDA-7 score (0-4 normal; 5-9 mild; 10-14 moderate; 15-21 severe): 14 Source: Developed by Drs. Orlin Bone, Kalani Gregory, Liang Littlejohn and colleagues, with an educational jeffrey from [employer]. MAIDA-7 Assessment Billing MAIDA-7 Assessment Tool: MAIDA-7 Assessment 96631 Review of Systems Const Denies chills and Denies fever(s) ENT Denies epistaxis and Denies nasal discharge Card Denies chest pain Resp Denies chest congestion, Denies cough and Denies hemoptysis GI Denies diarrhea and Denies nausea Skin/Breast Denies rash Neuro Reports no additional complaints Psych Reports no additional complaints Endo Reports no additional complaints Physical exam (Primary Care) Vital Signs: Last Vital Signs Pulse 101 H 06/11/23 15:03 BP 138/74 06/11/23 15:03 Pulse Ox 98 06/11/23 15:03 Oxygen Delivery Method Room Air 06/11/23 15:03 BMI result Body Mass Index 38.7 Tobacco/Smoking Status: Tobacco use Status Tobacco use date assessed 06/11/23 06/11/23 15:10 Patient Tobacco Use Status Never used Tobacco 06/11/23 15:10 e-Cigarette/Vaping Use Never Used 06/11/23 15:10 PHQ-9: PHQ-9 Score PHQ-9: Total score 0 06/11/23 15:55 Depression Screening Interpretation: Negative Thrive Assessment: Date of Thrive Assessment Date Thrive assessed 06/11/23 06/11/23 15:55 Const General: no acute distress Orientation/consciousness: patient oriented x3 HENMT Head: Yes normocephalic Eyes General: appearance normal, both eyes and all related structures Neck Neck: Yes supple Resp Effort & Inspection: normal respiratory effort, no cough and no stridor Cardio Rhythm: regular rhythm Heart sounds: S1 normal heart sound present and S2 normal heart sound present Skin General skin exam: turgor normal Neuro General: patient oriented x3, tone normal and moves all extremities Extrem Right lower extremity: no edema Left lower extremity: no edema Psych Affect: Anxious affect present and Hostile affect present Insight: Good insight present (Psych) Assessment and Plan Assessment & Plan (1) Diabetes 1.5, managed as type 2: Code(s): E13.9 - Other specified diabetes mellitus without complications (2) Anxiety, generalized: Code(s): F41.1 - Generalized anxiety disorder (3) Lipid disorder: Code(s): E78.9 - Disorder of lipoprotein metabolism, unspecified (4) Hypertension, essential: Code(s): I10 - Essential (primary) hypertension (5) Environmental allergies: Code(s): Z91.09 - Other allergy status, other than to drugs and biological substances (6) Microalbuminuria due to type 1 diabetes mellitus: Code(s): E10.29 - Type 1 diabetes mellitus with other diabetic kidney complication; R80.9 - Proteinuria, unspecified (7) Other specified hypothyroidism: Code(s): E03.8 - Other specified hypothyroidism (8) Obesity due to excess calories: Code(s): E66.09 - Other obesity due to excess calories Qualifiers: Body mass index: BMI 37.0-37.9 Obesity classification: adult class 2 (BMI 35 - 39.9) Serious obesity comorbidity presence: with serious comorbidity Qualified Code(s): E66.01 - Morbid (severe) obesity due to excess calories; Z68.37 - Body mass index [BMI] 37.0-37.9, adult (9) Depression, major, single episode, moderate: Code(s): F32.1 - Major depressive disorder, single episode, moderate (10) Bereavement reaction: Code(s): F43.20 - Adjustment disorder, unspecified; Z63.4 - Disappearance and of family member Plan Patient is a 57-year-old female came in today for follow-up appointment She has lost her recently secondary to liver cancer, patient is going through a rough time and is grieving Feeling depressed and cry easily. She does have a family support not financially She is seeing a therapist and medication prescriber Patient want to go on a disability, since I do not have any notes from therapist or psych med prescriber stating that patient is disabled due to psychiatric illness I am not able to fill any papers, I notified her, patient got very upset and very loud , our health out of school hours care worker was called in to talk to patient Therapist who was involved, we requested a letter of disability which they declined stating that they do not know the patient well We will see if we can provide patient with temporary disability due to her feeling anxious after passing of her I did started her on Lexapro 10 mg last visit which is helping her Still having difficulty sleeping and is taking a medication to sleep through psych med prescriber Hypertension: Blood pressure is stable patient is on amlodipine 10 mg, and lisinopril 40 mg, tolerating medication no side effects. Diabetes mellitus: Continue glipizide metformin 2.5 mg-250 mg once a day hemoglobin A1c is stable Hypothyroidism: TSH stable with levothyroxine 25 mg Lipid disorder: Patient is on pravastatin 40 mg and diet-controlled along with Zetia. BMI is elevated, patient is having difficulty losing weight Coding Level of Care Code Est Pt Level 4 (69167) Diagnoses Diabetes 1.5, managed as type 2 E13.9 Anxiety, generalized F41.1 Lipid disorder E78.9 Hypertension, essential I10 Environmental allergies Z91.09 Microalbuminuria due to type 1 diabetes mellitus E10.29; R80.9 Other specified hypothyroidism E03.8 Class 2 severe obesity due to excess calories with serious comorbidity and body mass index (BMI) of 37.0 to 37.9 in adult E66.01; Z68.37 Body mass index: BMI 37.0-37.9 Obesity classification: adult class 2 (BMI 35 - 39.9) Serious obesity comorbidity presence: with serious comorbidity Depression, major, single episode, moderate F32.1 Bereavement reaction F43.20; Z63.4 Additional Codes MAIDA-7 Assessment Billing - MAIDA-7 Assessment Tool: MAIDA-7 Assessment 15356 ([id number]) Time Spent (min) 45 Comment 45 minutes spent care of this patient including behavior health coordinator
== END 2023-06-11 17:24 | disposition home or self-care (01) ==
PROVIDERS: PCP Internal Medicine; Visit Provider Internal Medicine
DX: E10.29 Type 1 diabetes mellitus with other diabetic kidney complication (principal); E66.01 Morbid (severe) obesity due to excess calories; F32.1 Major depressive disorder, single episode, moderate; Z68.37 Body mass index [BMI] 37.0-37.9, adult; F41.1 Generalized anxiety disorder; E78.9 Disorder of lipoprotein metabolism, unspecified; I10 Essential (primary) hypertension; Z91.09 Other allergy status, other than to drugs and biological substances; R80.9 Proteinuria, unspecified; E03.8 Other specified hypothyroidism; Z63.4 Disappearance and death of family member
CPT/HCPCS: 83036; 99214

== ENCOUNTER 2023-10-10 09:21 | Outpatient (AMB) | payer OTHER, SELFPAY ==
--- NOTE | 2023-10-10 09:22 | A.OFFPC_ITS ---
Vital Signs 10/10/23 09:25 Height 5 ft 1 in Weight 200 lb 6 oz BMI 37.9 BP 144/76 H Blood Pressure Location Rt brachial Position Sitting Pulse 101 H Pulse Source Pulse Oximeter Pulse Oximetry (%) 99 Oxygen Delivery Method Room Air Intake Visit Reasons: 3M F/u~ Allergies No Known Drug Allergies [NO KNOWN DRUG ALLERGIES] Allergy (Mild, Verified 10/10/23 09:27) NONE Seasonal Allergy (Unknown, Uncoded 03/03/23 09:38) unknown Medication List - Last Reconciled 10/10/23 by Jaqui Fofana MD amlodipine 10 mg PO DAILY escitalopram oxalate (Lexapro) 10 mg PO DAILY ezetimibe 10 mg PO DAILY glipizide-metformin 2.5-250 mg 1 tab PO DAILY levothyroxine 25 mcg PO DAILY 90 days lisinopril 40 mg PO DAILY pravastatin 40 mg PO DAILY 90 days Tobacco use date assessed: 10/10/23 Dental Screening Dental Screen Date: 10/10/23 Did you have a dental visit in the last 12 months?: No Did you have a dental problem in the last 6 months where you did not have access to dental care?: No Was dental information given to patient?: No HPI 3M F/u~ HPI Details Patient is a 57-year-old female came in today for follow-up appointment She has lost her recently secondary to liver cancer, patient is going through a rough time financially she is waiting for her 's social security to start paying her, mean while she now has low income housing and food stamps and her daughter is helping her she will be going thru neuropsychological test soon to see if she has learning disability She is seeing a therapist and medication prescriber Anxiety is better patient is on Lexapro 10 mg now Hypertension: Blood pressure is slightly elevated today, patient is on amlodipine 10 mg, and lisinopril 40 mg, tolerating medication no side effects. We will continue to monitor Diabetes mellitus: Continue glipizide metformin 2.5 mg-250 mg once a day hemoglobin A1c is stable, she is in need of glucometer and other diabetic supplies we will address that Hypothyroidism: TSH stable with levothyroxine 25 mg Lipid disorder: Patient is on pravastatin 40 mg and diet-controlled along with Zetia. BMI is elevated, patient is having difficulty losing weight Follow-up 3 months, labs to be done today. HPI Comments History of Present Illness Details This is a longitudinal relationship between me and the patient. Ongoing care provided, patient was provided time to ask questions [facility] Medical History Environmental allergies Hypertension, essential Lipid disorder Diabetes 1.5, managed as type 2 Surgical History Hx of surgical procedure (02/24/23) History of section Family History Father Rheumatoid arthritis Mother HTN (hypertension) CVD (cardiovascular disease) Diabetes mellitus Brother No problems noted. Daughter No problems noted. Daughter No problems noted. Maternal Grandfather No problems noted. Maternal Grandmother No problems noted. Paternal Grandfather No problems noted. Paternal Grandmother No problems noted. Social History Housing: Apartment Alcohol intake: former Patient Tobacco Use Status: Never used Tobacco e-Cigarette/Vaping Use: Never Used service: No Current occupational status: unemployed and other (homemaker) Cognitive needs: No Hearing needs: No Vision needs: Yes Questionnaire Thrive Questionnaire Date Thrive assessed: 06/11/23 AUDIT C Alcohol Use Questionnaire (AUDIT-C) 1. How often do you have a drink containing alcohol?: Never 3. How often do you have six or more drinks on one occasion?: Never Total Score: 0 Score Reviewed/Action Taken: Yes MAIDA-7 AMB Questionnaire MAIDA-7 Date MAIDA - 7 assessed: 06/11/23 Source: Developed by Drs. Orlin Bone, Kalani Gregory, Liang Littlejohn and colleagues, with an educational jeffrey from [employer]. Review of Systems Const Denies chills and Denies fever(s) ENT Denies epistaxis and Denies nasal discharge Card Denies chest pain Resp Denies chest congestion, Denies cough and Denies hemoptysis GI Denies diarrhea and Denies nausea Skin/Breast Denies rash Neuro Reports no additional complaints Psych Reports no additional complaints Endo Reports no additional complaints Physical exam (Primary Care) Vital Signs: Last Vital Signs Pulse 101 H 10/10/23 09:25 BP 144/76 H 10/10/23 09:25 Pulse Ox 99 10/10/23 09:25 Oxygen Delivery Method Room Air 10/10/23 09:25 BMI result Body Mass Index 37.9 Tobacco/Smoking Status: Tobacco use Status Tobacco use date assessed 10/10/23 10/10/23 09:28 Patient Tobacco Use Status Never used Tobacco 10/10/23 09:24 e-Cigarette/Vaping Use Never Used 10/10/23 09:24 Thrive Assessment: Date of Thrive Assessment Date Thrive assessed 06/11/23 10/10/23 09:24 Const General: cooperative, comfortable and no acute distress Orientation/consciousness: patient oriented x3 HENMT Head: Yes normocephalic Eyes General: appearance normal, both eyes and all related structures Neck Neck: Yes supple Resp Effort & Inspection: normal respiratory effort, no cough and no stridor Cardio Rhythm: regular rhythm Heart sounds: S1 normal heart sound present and S2 normal heart sound present Skin General skin exam: turgor normal Neuro General: patient oriented x3, tone normal and moves all extremities Extrem Right lower extremity: no edema Left lower extremity: no edema Assessment and Plan Assessment & Plan (1) Diabetes 1.5, managed as type 2: Code(s): E13.9 - Other specified diabetes mellitus without complications (2) Lipid disorder: Code(s): E78.9 - Disorder of lipoprotein metabolism, unspecified (3) Hypertension, essential: Code(s): I10 - Essential (primary) hypertension (4) Environmental allergies: Code(s): Z91.09 - Other allergy status, other than to drugs and biological substances (5) Microalbuminuria due to type 1 diabetes mellitus: Code(s): E10.29 - Type 1 diabetes mellitus with other diabetic kidney complication; R80.9 - Proteinuria, unspecified (6) Other specified hypothyroidism: Code(s): E03.8 - Other specified hypothyroidism (7) Obesity due to excess calories: Code(s): E66.09 - Other obesity due to excess calories Qualifiers: Body mass index: BMI 37.0-37.9 Obesity classification: adult class 2 (BMI 35 - 39.9) Serious obesity comorbidity presence: with serious comorbidity Qualified Code(s): E66.01 - Morbid (severe) obesity due to excess calories; Z68.37 - Body mass index [BMI] 37.0-37.9, adult (8) Anxiety, generalized: Code(s): F41.1 - Generalized anxiety disorder (9) Depression, major, single episode, moderate: Code(s): F32.1 - Major depressive disorder, single episode, moderate Plan Patient is a 57-year-old female came in today for follow-up appointment She has lost her recently secondary to liver cancer, patient is going through a rough time financially she is waiting for her 's social security to start paying her, mean while she now has low income housing and food stamps and her daughter is helping her she will be going thru neuropsychological test soon to see if she has learning disability She is seeing a therapist and medication prescriber Anxiety is better patient is on Lexapro 10 mg now Hypertension: Blood pressure is slightly elevated today, patient is on amlodipine 10 mg, and lisinopril 40 mg, tolerating medication no side effects. We will continue to monitor Diabetes mellitus: Continue glipizide metformin 2.5 mg-250 mg once a day hemoglobin A1c is stable, she is in need of glucometer and other diabetic supplies we will address that Hypothyroidism: TSH stable with levothyroxine 25 mg Lipid disorder: Patient is on pravastatin 40 mg and diet-controlled along with Zetia. BMI is elevated, patient is having difficulty losing weight Follow-up 3 months, labs to be done today Orders: Orders TSH reflex Free T4 Today E03.8 - Other specified hypothyroidism, E10.29 - Type 1 diabetes mellitus with other diabetic kidney complication, E13.9 - Other specified diabetes mellitus without complications, E66.01 - Morbid (severe) obesity due to excess calories, E78.9 - Disorder of lipoprotein metabolism, unspecified, F41.1 - Generalized anxiety disorder, I10 - Essential (primary) hypertension, R80.9 - Proteinuria, unspecified, Z68.37 - Body mass index [BMI] 37.0-37.9, adult, Z91.09 - Other allergy status, other than to drugs and biological substances Complete Blood Count Auto Diff Today E03.8 - Other specified hypothyroidism, E10.29 - Type 1 diabetes mellitus with other diabetic kidney complication, E13.9 - Other specified diabetes mellitus without complications, E66.01 - Morbid (severe) obesity due to excess calories, E78.9 - Disorder of lipoprotein metabolism, unspecified, F41.1 - Generalized anxiety disorder, I10 - Essential (primary) hypertension, R80.9 - Proteinuria, unspecified, Z68.37 - Body mass index [BMI] 37.0-37.9, adult, Z91.09 - Other allergy status, other than to drugs and biological substances Comprehensive Met. Panel Today E03.8 - Other specified hypothyroidism, E10.29 - Type 1 diabetes mellitus with other diabetic kidney complication, E13.9 - Other specified diabetes mellitus without complications, E66.01 - Morbid (severe) obesity due to excess calories, E78.9 - Disorder of lipoprotein metabolism, unspecified, F41.1 - Generalized anxiety disorder, I10 - Essential (primary) hypertension, R80.9 - Proteinuria, unspecified, Z68.37 - Body mass index [BMI] 37.0-37.9, adult, Z91.09 - Other allergy status, other than to drugs and biological substances LDL Cholesterol Direct Today E03.8 - Other specified hypothyroidism, E10.29 - Type 1 diabetes mellitus with other diabetic kidney complication, E13.9 - Other specified diabetes mellitus without complications, E66.01 - Morbid (severe) obesity due to excess calories, E78.9 - Disorder of lipoprotein metabolism, unspecified, F41.1 - Generalized anxiety disorder, I10 - Essential (primary) hypertension, R80.9 - Proteinuria, unspecified, Z68.37 - Body mass index [BMI] 37.0-37.9, adult, Z91.09 - Other allergy status, other than to drugs and biological substances Hemoglobin A1c Today E03.8 - Other specified hypothyroidism, E10.29 - Type 1 diabetes mellitus with other diabetic kidney complication, E13.9 - Other specified diabetes mellitus without complications, E66.01 - Morbid (severe) obesity due to excess calories, E78.9 - Disorder of lipoprotein metabolism, unspecified, F41.1 - Generalized anxiety disorder, I10 - Essential (primary) hypertension, R80.9 - Proteinuria, unspecified, Z68.37 - Body mass index [BMI] 37.0-37.9, adult, Z91.09 - Other allergy status, other than to drugs and biological substances Microalbumin, Random (w Creat) Today E03.8 - Other specified hypothyroidism, E10.29 - Type 1 diabetes mellitus with other diabetic kidney complication, E13.9 - Other specified diabetes mellitus without complications, E66.01 - Morbid (severe) obesity due to excess calories, E78.9 - Disorder of lipoprotein metabolism, unspecified, F41.1 - Generalized anxiety disorder, I10 - Essential (primary) hypertension, R80.9 - Proteinuria, unspecified, Z68.37 - Body mass index [BMI] 37.0-37.9, adult, Z91.09 - Other allergy status, other than to drugs and biological substances Coding Level of Care Code Est Pt Level 4 (64454) Complex EM visit Add On [id number] Diagnoses Diabetes 1.5, managed as type 2 E13.9 Lipid disorder E78.9 Hypertension, essential I10 Environmental allergies Z91.09 Microalbuminuria due to type 1 diabetes mellitus E10.29; R80.9 Other specified hypothyroidism E03.8 Class 2 severe obesity due to excess calories with serious comorbidity and body mass index (BMI) of 37.0 to 37.9 in adult E66.01; Z68.37 Body mass index: BMI 37.0-37.9 Obesity classification: adult class 2 (BMI 35 - 39.9) Serious obesity comorbidity presence: with serious comorbidity Anxiety, generalized F41.1 Depression, major, single episode, moderate F32.1
[2023-10-10 09:25] VITALS: BP 144/76; PULSE 101; O2SAT 99; BMI 37.9
== END 2023-10-10 09:44 | disposition home or self-care (01) ==
PROVIDERS: PCP Internal Medicine; Visit Provider Internal Medicine
DX: E10.29 Type 1 diabetes mellitus with other diabetic kidney complication (principal); E66.01 Morbid (severe) obesity due to excess calories; Z68.37 Body mass index [BMI] 37.0-37.9, adult; F32.1 Major depressive disorder, single episode, moderate; E78.9 Disorder of lipoprotein metabolism, unspecified; I10 Essential (primary) hypertension; Z91.09 Other allergy status, other than to drugs and biological substances; R80.9 Proteinuria, unspecified; E03.8 Other specified hypothyroidism; F41.1 Generalized anxiety disorder
CPT/HCPCS: 99214; G2211

== ENCOUNTER 2023-10-10 09:44 | Outpatient (REF) | payer OTHER, SELFPAY ==
[2023-10-10 13:14] LABS: MANUAL DIFF FLAG NO
[2023-10-10 13:23] LABS: Basophils Percent Auto 0.5 % (0-2); Eosinophils Absolute Auto 0.2 X10*3/uL (0.0-0.4); Eosinophils Percent Auto 2.3 % (0-4); Hematocrit 39.1 % (37.0-47.0); Hemoglobin 12.8 g/dl (12.0-16.0); Imm Gran Abs Auto 0.04 X10*3/uL (0.00-0.03); Imm Gran Pct Auto 0.5 % (0.0-0.4); Lymphocytes Absolute Auto 1.9 X10*3/uL (1.2-4.9); Lymphocytes Percent Auto 22.5 % (20-40); Mean Corpuscular HGB Conc 32.7 g/dl (31.0-35.0); Mean Corpuscular Hemoglobin 28.4 pg (27.0-33.0); Mean Corpuscular Volume 86.9 fL (80.0-98.0); Mean Platelet Volume 10.3 fL (9.4-12.3); Monocytes Absolute Auto 0.8 X10*3/uL (0.1-1.2); Monocytes Percent Auto 9.5 % (2-11); Neutrophils Absolute Auto 5.3 x10*3/uL (2.0-8.3); Neutrophils Percent Auto 64.7 % (45-73); Platelet Count 246 X10*3/uL (160-400); Red Cell Distribution Width 13.7 % (11.0-16.0); White Blood Count 8.2 X10*3/uL (4.8-10.8)
[2023-10-10 13:47] LABS: Estimated Average Glucose 137 mg/dL; Hemoglobin A1c % 6.4 % (<6.0)
[2023-10-10 13:49] LABS: Creatinine Urine 127.85 mg/dL; Microalbum/Creatinine Ratio Ur 319.1 ug/mg cr (<30)
[2023-10-10 14:06] LABS: Alanine Aminotransferase 24 U/L (0-31); Albumin Level 4.2 g/dL (3.5-5.0); Alkaline Phosphatase 88 U/L (39-117); Anion Gap 12 (12-20); Aspartate Amino Transferase 28 U/L (5-31); Bilirubin Total 0.3 mg/dL (0.0-1.0); Blood Urea Nitrogen 15 mg/dL (9-16); Calcium 10.1 mg/dL (8.4-10.2); Carbon Dioxide 27 mmol/L (22-29); Chloride 104 mmol/L (96-108); Estimated Glomerular Filt Rate > 60; Glucose Random 94 mg/dL (60-115); Potassium 4.3 mmol/L (3.3-5.1); Sodium 139 mmol/L (135-145); Total Protein 7.4 g/dL (6.5-8.0)
[2023-10-10 14:24] LABS: TSH reflex Free T4 2.97 uIU/mL (0.32-4.0)
[2023-10-11 10:03] LABS: LDL Cholesterol Direct 101 mg/dL (<100)
== END 2023-10-10 09:45 | disposition home or self-care (01) ==
LOC: HO.HMGCLDS 09:44
PROVIDERS: PCP Internal Medicine; Visit Provider Internal Medicine
DX: E78.9 Disorder of lipoprotein metabolism, unspecified (principal); I10 Essential (primary) hypertension; E10.29 Type 1 diabetes mellitus with other diabetic kidney complication; R80.9 Proteinuria, unspecified; E03.8 Other specified hypothyroidism; E66.01 Morbid (severe) obesity due to excess calories; F41.1 Generalized anxiety disorder; Z91.09 Other allergy status, other than to drugs and biological substances; Z68.37 Body mass index [BMI] 37.0-37.9, adult
CPT/HCPCS: 36415; 80053; 82043; 82570; 83036; 83721; 84443; 85025

== ENCOUNTER 2024-01-13 08:17 | Outpatient (AMB) | payer OTHER, SELFPAY ==
--- NOTE | 2024-01-13 08:25 | MHC.PC.OV ---
Vital Signs 01/13/24 08:27 Height 5 ft 1 in Weight 206 lb BMI 38.9 BP 110/62 Blood Pressure Location Rt brachial Position Sitting Pulse 96 Pulse Source Pulse Oximeter Pulse Oximetry (%) 97 Oxygen Delivery Method Room Air Intake Visit Reasons: 3M F/u~ Allergies No Known Drug Allergies [NO KNOWN DRUG ALLERGIES] Allergy (Mild, Verified 01/13/24 08:28) NONE Seasonal Allergy (Unknown, Uncoded 01/13/24 08:28) unknown Medication List - Last Reconciled 01/13/24 by Jaqui Fofana MD amlodipine 10 mg PO DAILY blood-glucose meter (FreeStyle Lite Meter kit) As directed escitalopram oxalate (Lexapro) 10 mg PO DAILY ezetimibe 10 mg PO DAILY FreeStyle Lite Strips (blood sugar diagnostic) test blood sugar once a day NS glipizide-metformin 2.5-250 mg 1 tab PO DAILY lancets (FreeStyle Lancets) Test blood sugar once a day levothyroxine 25 mcg PO DAILY 90 days lisinopril 40 mg PO DAILY pravastatin 40 mg PO DAILY 90 days Tobacco use date assessed: 10/10/23 Dental Screening Dental Screen Date: 10/10/23 HPI 3M F/u~ HPI Details Patient is a 58-year-old female came in today for follow-up appointment Still struggling with the loss of her 1 year ago, secondary to liver cancer, she says that his anniversary is coming this week on and it is difficult to go through it. She had neuropsychological testing done recently which shows that she has a learning disability She is still waiting for [facility] to be approved She was seeing a therapist and medication prescriber, however medication prescriber is no longer covered under her insurance She is asking me if I can take over her medication, I see that she is on Lexapro 10 mg, and taking clonidine at night to sleep which she would like to stop Hypertension: Well-controlled, patient is on amlodipine 10 mg, and lisinopril 40 mg, tolerating medication no side effects. Diabetes mellitus: Continue glipizide metformin 2.5 mg-250 mg once a day hemoglobin A1c is stable, labs are needed before next visit in 3 months Hypothyroidism: TSH stable with levothyroxine 25 mg Lipid disorder: Patient is on pravastatin 40 mg and diet-controlled along with Zetia. BMI is elevated, patient is having difficulty losing weight Follow-up 3 months, [facility] Medical History Environmental allergies Hypertension, essential Lipid disorder Diabetes 1.5, managed as type 2 Surgical History Hx of surgical procedure (02/24/23) History of section Family History Father Rheumatoid arthritis Mother HTN (hypertension) CVD (cardiovascular disease) Diabetes mellitus Brother No problems noted. Daughter No problems noted. Daughter No problems noted. Maternal Grandfather No problems noted. Maternal Grandmother No problems noted. Paternal Grandfather No problems noted. Paternal Grandmother No problems noted. Social History Housing: Apartment Alcohol intake: former Patient Tobacco Use Status: Never used Tobacco e-Cigarette/Vaping Use: Never Used service: No Current occupational status: unemployed and other (homemaker) Cognitive needs: No Hearing needs: No Vision needs: Yes Questionnaire PHQ-9 Over the last 2 weeks, how often have you been bothered by any of the following problems? 1. Little interest or pleasure in doing things: not at all 2. Feeling down, depressed, or hopeless: nearly every day 3. Trouble falling or staying asleep, or sleeping too much: not at all 4. Feeling tired or having little energy: not at all 5. Poor appetite or overeating: not at all 6. Feeling bad about yourself - or that you are a failure or have let yourself or your family down: not at all 7. Trouble concentrating on things, such as reading the newspaper or watching television: not at all 8. Moving or speaking so slowly that other people could have noticed. Or the opposite - being so fidgety or restless that you have been moving around a lot more than usual: not at all 9. Thoughts that you would be better off or of hurting yourself in some way: not at all Total score: 3 Depression Screening Interpretation: Negative Depression Screening Done: Yes 57177 - PHQ-9 Billing: Yes Source: Developed by Drs. Orlin Bone, Kalani Gregory, Liang Littlejohn and colleagues, with an educational jeffrey from [employer]. Thrive Questionnaire Date Thrive assessed: 01/06/24 I am a: Patient What is your living situation today?: I have a steady place to live Within the past 12 months, did the food you bought not last and you didn't have the money to get more?: Never true Within the past 12 months, did you worry whether your food would run out before you got money to buy more?: Never true Do you have trouble paying for medicines?: No Do you have trouble getting transportation to medical appointments?: No Do you have trouble paying your heating and electricity bill?: No Do you have trouble taking care of your child, family member or friend?: No Do you have trouble with day-to-day activities such as bathing, preparing meals, shopping, managing finances, etc.?: No Are you interested in more education?: No Please select the resources that you would like help with: None Currently or been in a relationship where the following occur: No concerns reported THRIVE Score: 0 AUDIT C Alcohol Use Questionnaire (AUDIT-C) 1. How often do you have a drink containing alcohol?: Never 3. How often do you have six or more drinks on one occasion?: Never Total Score: 0 MAIDA-7 AMB Questionnaire MAIDA-7 Date MAIDA - 7 assessed: 06/11/23 Feeling nervous, anxious, or on edge: 3 = Nearly every day Not being able to stop or control worryin = Nearly every day Worrying too much about different things: 2 = More than half the days Trouble relaxin = Not at all Being so restless that it is hard to sit still: 3 = Nearly every day Becoming easily annoyed or irritable: 3 = Nearly every day Feeling afraid as if something awful might happen: 0 = Not at all Total MAIDA-7 score (0-4 normal; 5-9 mild; 10-14 moderate; 15-21 severe): 14 Source: Developed by Drs. Orlin Bone, Kalani Gregory, Liang Littlejohn and colleagues, with an educational jeffrey from [employer]. Review of Systems Const Denies chills and Denies fever(s) ENT Denies epistaxis and Denies nasal discharge Card Denies chest pain Resp Denies chest congestion, Denies cough and Denies hemoptysis GI Denies diarrhea and Denies nausea Skin/Breast Denies rash Neuro Reports no additional complaints Psych Reports no additional complaints Endo Reports no additional complaints Physical exam (Primary Care) Vital Signs: Last Vital Signs Pulse 96 01/13/24 08:27 BP 110/62 01/13/24 08:27 Pulse Ox 97 01/13/24 08:27 Oxygen Delivery Method Room Air 01/13/24 08:27 BMI result Body Mass Index 38.9 Tobacco/Smoking Status: Tobacco use Status Tobacco use date assessed 10/10/23 10/10/23 09:28 Patient Tobacco Use Status Never used Tobacco 10/10/23 09:24 e-Cigarette/Vaping Use Never Used 10/10/23 09:24 Depression Screening Interpretation: Negative Thrive Assessment: Date of Thrive Assessment Date Thrive assessed 01/06/24 01/06/24 12:28 Currently or been in a relationship where the following occur: No concerns reported Const General: cooperative, comfortable and no acute distress Orientation/consciousness: patient oriented x3 HENMT Head: Yes normocephalic Eyes General: appearance normal, both eyes and all related structures Neck Neck: Yes supple Resp Effort & Inspection: normal respiratory effort, no cough and no stridor Cardio Rhythm: regular rhythm Heart sounds: S1 normal heart sound present and S2 normal heart sound present Skin General skin exam: turgor normal Neuro General: patient oriented x3, tone normal and moves all extremities Extrem Right lower extremity: no edema Left lower extremity: no edema Assessment and Plan Assessment & Plan (1) Diabetes 1.5, managed as type 2: Code(s): E13.9 - Other specified diabetes mellitus without complications (2) Lipid disorder: Code(s): E78.9 - Disorder of lipoprotein metabolism, unspecified (3) Hypertension, essential: Code(s): I10 - Essential (primary) hypertension (4) Environmental allergies: Code(s): Z91.09 - Other allergy status, other than to drugs and biological substances (5) Obesity due to excess calories: Code(s): E66.09 - Other obesity due to excess calories Qualifiers: Body mass index: BMI 37.0-37.9 Obesity classification: adult class 2 (BMI 35 - 39.9) Serious obesity comorbidity presence: with serious comorbidity Qualified Code(s): E66.01 - Morbid (severe) obesity due to excess calories; Z68.37 - Body mass index [BMI] 37.0-37.9, adult (6) Other specified hypothyroidism: Code(s): E03.8 - Other specified hypothyroidism (7) Anxiety, generalized: Code(s): F41.1 - Generalized anxiety disorder (8) Depression, major, single episode, moderate: Code(s): F32.1 - Major depressive disorder, single episode, moderate (9) Learning disability: Code(s): F81.9 - Developmental disorder of scholastic skills, unspecified (10) Microalbuminuria due to type 1 diabetes mellitus: Code(s): E10.29 - Type 1 diabetes mellitus with other diabetic kidney complication; R80.9 - Proteinuria, unspecified Plan Patient is a 58-year-old female came in today for follow-up appointment Still struggling with the loss of her 1 year ago, secondary to liver cancer, she says that his anniversary is coming this week on and it is difficult to go through it. She had neuropsychological testing done recently which shows that she has a learning disability She is still waiting for [employer] to be approved She was seeing a therapist and medication prescriber, however medication prescriber is no longer covered under her insurance She is asking me if I can take over her medication, I see that she is on Lexapro 10 mg, and taking clonidine at night to sleep which she would like to stop Hypertension: Well-controlled, patient is on amlodipine 10 mg, and lisinopril 40 mg, tolerating medication no side effects. Diabetes mellitus: Continue glipizide metformin 2.5 mg-250 mg once a day hemoglobin A1c is stable, labs are needed before next visit in 3 months Hypothyroidism: TSH stable with levothyroxine 25 mg Lipid disorder: Patient is on pravastatin 40 mg and diet-controlled along with Zetia. BMI is elevated, patient is having difficulty losing weight Follow-up 3 months, Orders: Orders Complete Blood Count Auto Diff Today E03.8 - Other specified hypothyroidism, E13.9 - Other specified diabetes mellitus without complications, E66.01 - Morbid (severe) obesity due to excess calories, E78.9 - Disorder of lipoprotein metabolism, unspecified, F32.1 - Major depressive disorder, single episode, moderate, F41.1 - Generalized anxiety disorder, F81.9 - Developmental disorder of scholastic skills, unspecified, I10 - Essential (primary) hypertension, Z68.37 - Body mass index [BMI] 37.0-37.9, adult, Z91.09 - Other allergy status, other than to drugs and biological substances LDL Cholesterol Direct Today E03.8 - Other specified hypothyroidism, E13.9 - Other specified diabetes mellitus without complications, E66.01 - Morbid (severe) obesity due to excess calories, E78.9 - Disorder of lipoprotein metabolism, unspecified, F32.1 - Major depressive disorder, single episode, moderate, F41.1 - Generalized anxiety disorder, F81.9 - Developmental disorder of scholastic skills, unspecified, I10 - Essential (primary) hypertension, Z68.37 - Body mass index [BMI] 37.0-37.9, adult, Z91.09 - Other allergy status, other than to drugs and biological substances Hemoglobin A1c Today E03.8 - Other specified hypothyroidism, E13.9 - Other specified diabetes mellitus without complications, E66.01 - Morbid (severe) obesity due to excess calories, E78.9 - Disorder of lipoprotein metabolism, unspecified, F32.1 - Major depressive disorder, single episode, moderate, F41.1 - Generalized anxiety disorder, F81.9 - Developmental disorder of scholastic skills, unspecified, I10 - Essential (primary) hypertension, Z68.37 - Body mass index [BMI] 37.0-37.9, adult, Z91.09 - Other allergy status, other than to drugs and biological substances Comprehensive Met. Panel Today E03.8 - Other specified hypothyroidism, E13.9 - Other specified diabetes mellitus without complications, E66.01 - Morbid (severe) obesity due to excess calories, E78.9 - Disorder of lipoprotein metabolism, unspecified, F32.1 - Major depressive disorder, single episode, moderate, F41.1 - Generalized anxiety disorder, F81.9 - Developmental disorder of scholastic skills, unspecified, I10 - Essential (primary) hypertension, Z68.37 - Body mass index [BMI] 37.0-37.9, adult, Z91.09 - Other allergy status, other than to drugs and biological substances TSH reflex Free T4 Today E03.8 - Other specified hypothyroidism, E13.9 - Other specified diabetes mellitus without complications, E66.01 - Morbid (severe) obesity due to excess calories, E78.9 - Disorder of lipoprotein metabolism, unspecified, F32.1 - Major depressive disorder, single episode, moderate, F41.1 - Generalized anxiety disorder, F81.9 - Developmental disorder of scholastic skills, unspecified, I10 - Essential (primary) hypertension, Z68.37 - Body mass index [BMI] 37.0-37.9, adult, Z91.09 - Other allergy status, other than to drugs and biological substances Coding Level of Care Code Est Pt Level 4 (12524) Complex EM visit Add On G2211 Diagnoses Diabetes 1.5, managed as type 2 E13.9 Lipid disorder E78.9 Hypertension, essential I10 Environmental allergies Z91.09 Class 2 severe obesity due to excess calories with serious comorbidity and body mass index (BMI) of 37.0 to 37.9 in adult E66.01; Z68.37 Body mass index: BMI 37.0-37.9 Obesity classification: adult class 2 (BMI 35 - 39.9) Serious obesity comorbidity presence: with serious comorbidity Other specified hypothyroidism E03.8 Anxiety, generalized F41.1 Depression, major, single episode, moderate F32.1 Learning disability F81.9 Microalbuminuria due to type 1 diabetes mellitus E10.29; R80.9
[2024-01-13 08:27] VITALS: BP 110/62; PULSE 96; O2SAT 97; BMI 38.9
== END 2024-01-13 08:45 | disposition home or self-care (01) ==
PROVIDERS: PCP Internal Medicine; Visit Provider Internal Medicine
DX: E10.29 Type 1 diabetes mellitus with other diabetic kidney complication (principal); E66.01 Morbid (severe) obesity due to excess calories; F32.1 Major depressive disorder, single episode, moderate; Z68.37 Body mass index [BMI] 37.0-37.9, adult; E78.9 Disorder of lipoprotein metabolism, unspecified; I10 Essential (primary) hypertension; Z91.09 Other allergy status, other than to drugs and biological substances; E03.8 Other specified hypothyroidism; F41.1 Generalized anxiety disorder; F81.9 Developmental disorder of scholastic skills, unspecified; R80.9 Proteinuria, unspecified

== ENCOUNTER → 2024-01-13 08:17 | Outpatient (BNVA) | payer OTHER, SELFPAY | PROVIDERS: PCP Internal Medicine; Visit Provider Internal Medicine | DX: E10.29 Type 1 diabetes mellitus with other diabetic kidney complication (principal); R80.9 Proteinuria, unspecified; F81.9 Developmental disorder of scholastic skills, unspecified; F32.1 Major depressive disorder, single episode, moderate; F41.1 Generalized anxiety disorder; E03.8 Other specified hypothyroidism; E78.9 Disorder of lipoprotein metabolism, unspecified; I10 Essential (primary) hypertension; E66.01 Morbid (severe) obesity due to excess calories; Z68.37 Body mass index [BMI] 37.0-37.9, adult; Z91.09 Other allergy status, other than to drugs and biological substances; Z71.3 Dietary counseling and surveillance | CPT/HCPCS: 99212 ==

== ENCOUNTER 2024-04-20 12:51 | Outpatient (AMB) | payer OTHER, SELFPAY ==
--- NOTE | 2024-04-20 12:56 | A.OFFPC_ITS ---
Vital Signs 04/20/24 12:57 Height 5 ft 1 in Weight 208 lb 2 oz BMI 39.3 BP 118/62 Blood Pressure Location Rt brachial Position Sitting Pulse 104 H Pulse Source Pulse Oximeter Pulse Oximetry (%) 96 Oxygen Delivery Method Room Air Intake Visit Reasons: 3 months f/up Allergies No Known Drug Allergies [NO KNOWN DRUG ALLERGIES] Allergy (Mild, Verified 01/13/24 08:28) NONE Seasonal Allergy (Unknown, Uncoded 01/13/24 08:28) unknown Medication List - Last Reconciled 04/20/24 by Jaqui Fofana MD amlodipine 10 mg PO DAILY blood-glucose meter (FreeStyle Lite Meter kit) As directed escitalopram oxalate (Lexapro) 10 mg PO DAILY ezetimibe 10 mg PO DAILY FreeStyle Lite Strips (blood sugar diagnostic) test blood sugar once a day NS glipizide-metformin 2.5-250 mg 1 tab PO DAILY lancets (FreeStyle Lancets) Test blood sugar once a day levothyroxine 25 mcg PO DAILY 90 days lisinopril 40 mg PO DAILY pravastatin 40 mg PO DAILY 90 days Tobacco use date assessed: 10/10/23 Dental Screening Dental Screen Date: 10/10/23 HPI 3 months f/up HPI Details Patient is a 58-year-old female came in today for follow-up appointment Patient is now doing very well she is financially secure getting her 's pension and social security And also have moved into low income housing, stress is improved she is enjoying life Her in 2021 secondary to liver cancer She had neuropsychological testing done which shows that she has a learning disability She was seeing a therapist and medication prescriber, however medication prescriber is no longer covered under her insurance I took over her Lexapro 20 mg, she is now having difficulty sleeping at night she was on clonidine however that was stopped as per her request I have sent mirtazapine she may start that at night Hypertension: Well-controlled, patient is on amlodipine 10 mg, and lisinopril 40 mg, tolerating medication no side effects. Diabetes mellitus: Continue glipizide metformin 2.5 mg-250 mg once a day hemoglobin A1c is stable, labs are needed before next visit in 3 months Hypothyroidism: TSH stable with levothyroxine 25 mg Lipid disorder: Patient is on pravastatin 40 mg and diet-controlled along with Zetia. BMI is elevated, patient is having difficulty losing weight Follow-up 3 months, [facility] Medical History Environmental allergies Hypertension, essential Lipid disorder Diabetes 1.5, managed as type 2 Surgical History Hx of surgical procedure (02/24/23) History of section Family History Father Rheumatoid arthritis Mother HTN (hypertension) CVD (cardiovascular disease) Diabetes mellitus Brother No problems noted. Daughter No problems noted. Daughter No problems noted. Maternal Grandfather No problems noted. Maternal Grandmother No problems noted. Paternal Grandfather No problems noted. Paternal Grandmother No problems noted. Social History Housing: Apartment Alcohol intake: former Patient Tobacco Use Status: Never used Tobacco e-Cigarette/Vaping Use: Never Used service: No Current occupational status: unemployed and other (homemaker) Cognitive needs: No Hearing needs: No Vision needs: Yes Questionnaire Thrive Questionnaire Date Thrive assessed: 01/06/24 I am a: Patient What is your living situation today?: I have a steady place to live Within the past 12 months, did the food you bought not last and you didn't have the money to get more?: Never true Within the past 12 months, did you worry whether your food would run out before you got money to buy more?: Never true Do you have trouble paying for medicines?: No Do you have trouble getting transportation to medical appointments?: No Do you have trouble paying your heating and electricity bill?: No Do you have trouble taking care of your child, family member or friend?: No Do you have trouble with day-to-day activities such as bathing, preparing meals, shopping, managing finances, etc.?: No Are you currently unemployed and looking for a job?: No Are you interested in more education?: No Please select the resources that you would like help with: None Currently or been in a relationship where the following occur: No concerns reported THRIVE Score: 0 MAIDA-7 AMB Questionnaire MAIDA-7 Date MAIDA - 7 assessed: 06/11/23 Source: Developed by Drs. Orlin Bone, Kalani Gregory, Liang Littlejohn and colleagues, with an educational jeffrey from [employer]. Review of Systems Const Denies chills and Denies fever(s) ENT Denies epistaxis and Denies nasal discharge Card Denies chest pain Resp Denies chest congestion, Denies cough and Denies hemoptysis GI Denies diarrhea and Denies nausea Skin/Breast Denies rash Neuro Reports no additional complaints Psych Reports no additional complaints Endo Reports no additional complaints Physical exam (Primary Care) Vital Signs: Last Vital Signs Pulse 104 H 04/20/24 12:57 BP 118/62 04/20/24 12:57 Pulse Ox 96 04/20/24 12:57 Oxygen Delivery Method Room Air 04/20/24 12:57 BMI result Body Mass Index 39.3 Tobacco/Smoking Status: Tobacco use Status Tobacco use date assessed 10/10/23 04/20/24 13:01 Patient Tobacco Use Status Never used Tobacco 04/20/24 13:01 e-Cigarette/Vaping Use Never Used 04/20/24 13:01 Thrive Assessment: Date of Thrive Assessment Date Thrive assessed 01/06/24 04/20/24 13:01 Currently or been in a relationship where the following occur: No concerns reported Const General: cooperative, comfortable and no acute distress Orientation/consciousness: patient oriented x3 HENMT Head: Yes normocephalic Eyes General: appearance normal, both eyes and all related structures Neck Neck: Yes supple Resp Effort & Inspection: normal respiratory effort, no cough and no stridor Cardio Rhythm: regular rhythm Heart sounds: S1 normal heart sound present and S2 normal heart sound present Skin General skin exam: turgor normal Neuro General: patient oriented x3, tone normal and moves all extremities Extrem Right lower extremity: no edema Left lower extremity: no edema Coding Level of Care Code Est Pt Level 4 (30972) Complex EM visit Add On G2211 Diagnoses Diabetes 1.5, managed as type 2 E13.9 Lipid disorder E78.9 Hypertension, essential I10 Environmental allergies Z91.09 Microalbuminuria due to type 1 diabetes mellitus E10.29; R80.9 Other specified hypothyroidism E03.8 Anxiety, generalized F41.1 Learning disability F81.9 Difficulty sleeping G47.9 Assessment & Plan Assessment & Plan (1) Diabetes 1.5, managed as type 2: Code(s): E13.9 - Other specified diabetes mellitus without complications Category: Medical (2) Lipid disorder: Code(s): E78.9 - Disorder of lipoprotein metabolism, unspecified Category: Medical (3) Hypertension, essential: Code(s): I10 - Essential (primary) hypertension Category: Medical (4) Environmental allergies: Code(s): Z91.09 - Other allergy status, other than to drugs and biological substances Category: Medical (5) Microalbuminuria due to type 1 diabetes mellitus: Code(s): E10.29 - Type 1 diabetes mellitus with other diabetic kidney complication; R80.9 - Proteinuria, unspecified Category: Medical (6) Other specified hypothyroidism: Code(s): E03.8 - Other specified hypothyroidism Category: Medical (7) Anxiety, generalized: Code(s): F41.1 - Generalized anxiety disorder Category: Medical (8) Learning disability: Code(s): F81.9 - Developmental disorder of scholastic skills, unspecified Category: Social Hx (9) Difficulty sleeping: Code(s): G47.9 - Sleep disorder, unspecified Category: Medical Plan Patient is a 58-year-old female came in today for follow-up appointment Patient is now doing very well she is financially secure getting her 's pension and social security And also have moved into low income housing, stress is improved she is enjoying life Her in 2021 secondary to liver cancer She had neuropsychological testing done which shows that she has a learning disability She was seeing a therapist and medication prescriber, however medication prescriber is no longer covered under her insurance I took over her Lexapro 20 mg, she is now having difficulty sleeping at night she was on clonidine however that was stopped as per her request I have sent mirtazapine she may start that at night Hypertension: Well-controlled, patient is on amlodipine 10 mg, and lisinopril 40 mg, tolerating medication no side effects. Diabetes mellitus: Continue glipizide metformin 2.5 mg-250 mg once a day hemoglobin A1c is stable, labs are needed before next visit in 3 months Hypothyroidism: TSH stable with levothyroxine 25 mg Lipid disorder: Patient is on pravastatin 40 mg and diet-controlled along with Zetia. BMI is elevated, patient is having difficulty losing weight Follow-up 3 months, Medications: New mirtazapine 15 mg PO BEDTIME 30 tabs 0RF To sleep
[2024-04-20 12:57] VITALS: BP 118/62; PULSE 104; O2SAT 96; BMI 39.3
== END 2024-04-20 13:40 | disposition home or self-care (01) ==
PROVIDERS: PCP Internal Medicine; Visit Provider Internal Medicine
DX: E13.9 Other specified diabetes mellitus without complications (principal); E78.9 Disorder of lipoprotein metabolism, unspecified; I10 Essential (primary) hypertension; Z91.09 Other allergy status, other than to drugs and biological substances; R80.9 Proteinuria, unspecified; E03.8 Other specified hypothyroidism; F41.1 Generalized anxiety disorder; F81.9 Developmental disorder of scholastic skills, unspecified; G47.9 Sleep disorder, unspecified

== ENCOUNTER 2024-04-20 12:51 | Outpatient (REF) | payer OTHER, SELFPAY ==
[2024-04-20 16:16] LABS: MANUAL DIFF FLAG NO
[2024-04-20 16:27] LABS: Basophils Percent Auto 0.4 % (0-2); Eosinophils Absolute Auto 0.2 X10*3/uL (0.0-0.4); Eosinophils Percent Auto 3.3 % (0-4); Hematocrit 37.4 % (37.0-47.0); Hemoglobin 12.3 g/dl (12.0-16.0); Imm Gran Abs Auto 0.02 X10*3/uL (0.00-0.03); Imm Gran Pct Auto 0.4 % (0.0-0.4); Lymphocytes Absolute Auto 1.6 X10*3/uL (1.2-4.9); Lymphocytes Percent Auto 29.3 % (20-40); Mean Corpuscular HGB Conc 32.9 g/dl (31.0-35.0); Mean Corpuscular Hemoglobin 28.1 pg (27.0-33.0); Mean Corpuscular Volume 85.4 fL (80.0-98.0); Mean Platelet Volume 9.5 fL (9.4-12.3); Monocytes Absolute Auto 0.4 X10*3/uL (0.1-1.2); Monocytes Percent Auto 7.6 % (2-11); Neutrophils Absolute Auto 3.3 x10*3/uL (2.0-8.3); Platelet Count 222 X10*3/uL (160-400); Red Blood Count 4.38 X10*6/uL (4.20-5.50); Red Cell Distribution Width 13.8 % (11.0-16.0); White Blood Count 5.5 X10*3/uL (4.8-10.8)
[2024-04-20 17:05] LABS: Estimated Average Glucose 137 mg/dL; Hemoglobin A1C 142.7699 umol/L; Hemoglobin A1c % 6.4 % (<6.0); Total Hemoglobin (HGBA1C) 3062.4113 umol/L
[2024-04-20 17:10] LABS: Alanine Aminotransferase 62 U/L (0-31); Alkaline Phosphatase 84 U/L (39-117); Anion Gap 11 (12-20); Aspartate Amino Transferase 64 U/L (5-31); Bilirubin Total 0.2 mg/dL (0.0-1.0); Blood Urea Nitrogen 16 mg/dL (9-16); Calcium 9.1 mg/dL (8.4-10.2); Carbon Dioxide 25 mmol/L (22-29); Chloride 107 mmol/L (96-108); Estimated Glomerular Filt Rate > 60; Glucose Random 138 mg/dL (60-115); Potassium 4.2 mmol/L (3.3-5.1); Sodium 139 mmol/L (135-145); Total Protein 7.1 g/dL (6.5-8.0)
[2024-04-20 17:26] LABS: TSH reflex Free T4 1.77 uIU/mL (0.32-4.0)
[2024-04-21 12:09] LABS: LDL Cholesterol Direct 105 mg/dL (<100)
== END 2024-04-20 12:52 | disposition home or self-care (01) ==
LOC: HO.HMGCLDS 12:51
PROVIDERS: PCP Internal Medicine; Visit Provider Internal Medicine
DX: E13.29 Other specified diabetes mellitus with other diabetic kidney complication (principal); R80.9 Proteinuria, unspecified; E78.9 Disorder of lipoprotein metabolism, unspecified; I10 Essential (primary) hypertension; E03.8 Other specified hypothyroidism; F41.1 Generalized anxiety disorder; F81.9 Developmental disorder of scholastic skills, unspecified; G47.9 Sleep disorder, unspecified; F32.1 Major depressive disorder, single episode, moderate; E66.01 Morbid (severe) obesity due to excess calories; Z68.37 Body mass index [BMI] 37.0-37.9, adult; Z91.09 Other allergy status, other than to drugs and biological substances
CPT/HCPCS: 36415; 80053; 83036; 83721; 84443; 85025; 99212

== ENCOUNTER 2024-07-20 12:50 | Outpatient (REF) | payer OTHER, SELFPAY ==
[2024-07-20 17:52] LABS: Alanine Aminotransferase 24 U/L (0-31); Alkaline Phosphatase 87 U/L (39-117); Anion Gap 9 (12-20); Aspartate Amino Transferase 31 U/L (5-31); Bilirubin Total 0.3 mg/dL (0.0-1.0); Blood Urea Nitrogen 15 mg/dL (9-16); Calcium 9.4 mg/dL (8.4-10.2); Carbon Dioxide 26 mmol/L (22-29); Chloride 108 mmol/L (96-108); Estimated Glomerular Filt Rate > 60; Glucose Random 146 mg/dL (60-115); Potassium 4.1 mmol/L (3.3-5.1); Sodium 139 mmol/L (135-145); Total Protein 6.9 g/dL (6.5-8.0)
[2024-07-21 16:05] LABS: LDL Cholesterol Direct 98 mg/dL (<100)
== END 2024-07-20 12:51 | disposition home or self-care (01) ==
LOC: HO.HMGCLDS 12:50
PROVIDERS: PCP Internal Medicine; Visit Provider Internal Medicine
DX: E13.29 Other specified diabetes mellitus with other diabetic kidney complication (principal); R80.9 Proteinuria, unspecified; E78.9 Disorder of lipoprotein metabolism, unspecified; I10 Essential (primary) hypertension; E03.8 Other specified hypothyroidism; E66.01 Morbid (severe) obesity due to excess calories; Z68.37 Body mass index [BMI] 37.0-37.9, adult; F41.1 Generalized anxiety disorder; G47.9 Sleep disorder, unspecified; R79.89 Other specified abnormal findings of blood chemistry; Z79.899 Other long term (current) drug therapy; Z91.09 Other allergy status, other than to drugs and biological substances
CPT/HCPCS: 36415; 80053; 83721; 96127; 99212

== ENCOUNTER 2024-07-20 13:10 | Outpatient (AMB) | payer OTHER, SELFPAY ==
[2024-07-20 13:16] VITALS: BP 120/64; BMI 37.8
--- NOTE | 2024-07-20 13:16 | A.OFFPC_ITS ---
Vital Signs 07/20/24 13:16 Height 5 ft 1 in Weight 200 lb BMI 37.8 BP 120/64 Blood Pressure Location Lt brachial Position Sitting Intake Visit Reasons: 3m follow up Allergies No Known Drug Allergies [NO KNOWN DRUG ALLERGIES] Allergy (Mild, Verified 07/20/24 13:19) NONE Seasonal Allergy (Unknown, Uncoded 01/13/24 08:28) unknown Medication List - Last Reconciled 07/20/24 by Jaqui Fofana MD amlodipine 10 mg PO DAILY blood-glucose meter (FreeStyle Lite Meter kit) As directed escitalopram oxalate (Lexapro) 10 mg PO DAILY ezetimibe 10 mg PO DAILY FreeStyle Lite Strips (blood sugar diagnostic) test blood sugar once a day NS glipizide-metformin 2.5-250 mg 1 tab PO DAILY lancets (FreeStyle Lancets) Test blood sugar once a day lisinopril 40 mg PO DAILY mirtazapine 15 mg PO BEDTIME pravastatin 40 mg PO DAILY 90 days Tobacco use date assessed: 07/20/24 Dental Screening Dental Screen Date: 07/20/24 Did you have a dental visit in the last 12 months?: No Did you have a dental problem in the last 6 months where you did not have access to dental care?: No Was dental information given to patient?: Patient declined HPI 3m follow up HPI Details f/u apt - The patient is a 58-year-old female pr esenting for follow-up - Recent lab work conducted indicated an A1c level of 6.4% and elevated liver enzymes from March. - Patient was advised to discontinue pra vastatin in March due to concerns over liver function. she has restarted it again, LFT update levels not available, we will keep an eye on those - Medication regimen includes Amlodipine , Lexapro, Zetia, and Lisinopril, reflecting ongoing management for hypertension and hyperlipidemia. - Reports excellent blood pressure contr ol and no current abdominal complaints. - Mention of previously experienced ankl e swelling, managed effectively with diabetic socks rather than elastic socks. Problem List - Essential Hypertension - Type 2 Diabetes Mellitus - Hyperlipidemia - Elevated Liver Enzymes - obesity Patient Instructions - Continue with current medications incl uding Amlodipine, Lexapro, Zetia, and Lisinopril. - Monitor blood pressure regularly as ad vised. - Maintain use of diabetic socks to natalie ge leg swelling. - Attend the scheduled follow-up appoint ment on October 13 for physical examination. - Keep a record of any new or worsening symptoms and report them during the next visit. Review of Systems - General: No fever no chills - Neurological: No headaches no dizziness - Ear nose throat: No sore throat no hearing difficulty no ear pain - Cardiovascular: No syncope, no chest pain, no palpitations - Gastrointestinal: No nausea vomiting or diarrhea - Endocrine: No polyuria polydipsia no heat intolerance - Genitourinary: No dysuria , no blood in urine Physical Exam General: No acute distress HEENT: No acute findings Neck: Supple Respiratory system: Able to talk in full sentences, no audible wheeze Cardiovascular: S1-S2 regular in rate and rhythm Gastrointestinal: No pain Extremities: No new findings, no swelling of ankles [employer]: Alert awake oriented x3 motor sensory intact Skin: Normal turgor [facility] Medical History Environmental allergies Hypertension, essential Lipid disorder Diabetes 1.5, managed as type 2 Surgical History Hx of surgical procedure (02/24/23) History of section Family History Father Rheumatoid arthritis Mother HTN (hypertension) CVD (cardiovascular disease) Diabetes mellitus Brother No problems noted. Daughter No problems noted. Daughter No problems noted. Maternal Grandfather No problems noted. Maternal Grandmother No problems noted. Paternal Grandfather No problems noted. Paternal Grandmother No problems noted. Social History Housing: Apartment Alcohol intake: former Patient Tobacco Use Status: Never used Tobacco e-Cigarette/Vaping Use: Never Used service: No Current occupational status: unemployed and other (homemaker) Cognitive needs: No Hearing needs: No Vision needs: Yes Questionnaire PHQ-9 Over the last 2 weeks, how often have you been bothered by any of the following problems? 1. Little interest or pleasure in doing things: not at all 2. Feeling down, depressed, or hopeless: not at all 3. Trouble falling or staying asleep, or sleeping too much: not at all 4. Feeling tired or having little energy: not at all 5. Poor appetite or overeating: not at all 6. Feeling bad about yourself - or that you are a failure or have let yourself or your family down: not at all 7. Trouble concentrating on things, such as reading the newspaper or watching television: not at all 8. Moving or speaking so slowly that other people could have noticed. Or the opposite - being so fidgety or restless that you have been moving around a lot more than usual: not at all 9. Thoughts that you would be better off or of hurting yourself in some way: not at all Total score: 0 Depression Screening Interpretation: Negative Depression Screening Done: Yes 74534 - PHQ-9 Billing: Yes Source: Developed by Drs. Orlin Bone, Kalani Gregory, Liang Littlejohn and colleagues, with an educational jeffrey from [employer]. Thrive Questionnaire Date Thrive assessed: 07/20/24 I am a: Patient What is your living situation today?: I have a steady place to live Within the past 12 months, did the food you bought not last and you didn't have the money to get more?: Never true Within the past 12 months, did you worry whether your food would run out before you got money to buy more?: Never true Do you have trouble paying for medicines?: No Do you have trouble getting transportation to medical appointments?: No Do you have trouble paying your heating and electricity bill?: No Do you have trouble taking care of your child, family member or friend?: No Do you have trouble with day-to-day activities such as bathing, preparing meals, shopping, managing finances, etc.?: No Are you currently unemployed and looking for a job?: No Are you interested in more education?: No Please select the resources that you would like help with: None Currently or been in a relationship where the following occur: No concerns reported THRIVE Score: 0 AUDIT C Alcohol Use Questionnaire (AUDIT-C) 1. How often do you have a drink containing alcohol?: Never 3. How often do you have six or more drinks on one occasion?: Never Total Score: 0 Score Reviewed/Action Taken: Yes MAIDA-7 AMB Questionnaire MAIDA-7 Date MAIDA - 7 assessed: 07/20/24 Feeling nervous, anxious, or on edge: 0 = Not at all Not being able to stop or control worryin = Not at all Worrying too much about different things: 0 = Not at all Trouble relaxin = Not at all Being so restless that it is hard to sit still: 0 = Not at all Becoming easily annoyed or irritable: 0 = Not at all Feeling afraid as if something awful might happen: 0 = Not at all Total MAIDA-7 score (0-4 normal; 5-9 mild; 10-14 moderate; 15-21 severe): 0 Source: Developed by Drs. Orlin Bone, Kalani Gregory, Liang Littlejohn and colleagues, with an educational jeffrey from [employer]. MAIDA-7 Assessment Billing MAIDA-7 Assessment Tool: MAIDA-7 Assessment 09062 Physical exam (Primary Care) Vital Signs: Last Vital Signs BP 120/64 07/20/24 13:16 BMI result Body Mass Index 37.8 Tobacco/Smoking Status: Tobacco use Status Tobacco use date assessed 07/20/24 07/20/24 13:23 Patient Tobacco Use Status Never used Tobacco 07/20/24 13:20 e-Cigarette/Vaping Use Never Used 07/20/24 13:20 PHQ-9: PHQ-9 Score PHQ-9: Total score 0 07/20/24 13:30 Depression Screening Interpretation: Negative Thrive Assessment: Date of Thrive Assessment Date Thrive assessed 07/20/24 07/20/24 13:23 Currently or been in a relationship where the following occur: No concerns reported Coding Level of Care Code Est Pt Level 4 (60919) Complex EM visit Add On G2211 Diagnoses Diabetes 1.5, managed as type 2 E13.9 Lipid disorder E78.9 Hypertension, essential I10 Environmental allergies Z91.09 Microalbuminuria due to type 1 diabetes mellitus E10.29; R80.9 Other specified hypothyroidism E03.8 Class 2 severe obesity due to excess calories with serious comorbidity and body mass index (BMI) of 37.0 to 37.9 in adult E66.01; Z68.37 Body mass index: BMI 37.0-37.9 Obesity classification: adult class 2 (BMI 35 - 39.9) Serious obesity comorbidity presence: with serious comorbidity Anxiety, generalized F41.1 Difficulty sleeping G47.9 LFT elevation R79.89 Additional Codes MAIDA-7 Assessment Billing - MAIDA-7 Assessment Tool: MAIDA-7 Assessment 41209 ([id number]) PHQ-9 - 13408 - PHQ-9 Billing: Yes ([id number]) Assessment & Plan Assessment & Plan (1) Diabetes 1.5, managed as type 2: Code(s): E13.9 - Other specified diabetes mellitus without complications Category: Medical (2) Lipid disorder: Code(s): E78.9 - Disorder of lipoprotein metabolism, unspecified Category: Medical (3) Hypertension, essential: Code(s): I10 - Essential (primary) hypertension Category: Medical (4) Environmental allergies: Code(s): Z91.09 - Other allergy status, other than to drugs and biological substances Category: Medical (5) Microalbuminuria due to type 1 diabetes mellitus: Code(s): E10.29 - Type 1 diabetes mellitus with other diabetic kidney complication; R80.9 - Proteinuria, unspecified Category: Medical (6) Other specified hypothyroidism: Code(s): E03.8 - Other specified hypothyroidism Category: Medical (7) Obesity due to excess calories: Code(s): E66.09 - Other obesity due to excess calories Category: Medical Qualifiers: Body mass index: BMI 37.0-37.9 Obesity classification: adult class 2 (BMI 35 - 39.9) Serious obesity comorbidity presence: with serious comorbidity Qualified Code(s): E66.01 - Morbid (severe) obesity due to excess calories; Z68.37 - Body mass index [BMI] 37.0-37.9, adult (8) Anxiety, generalized: Code(s): F41.1 - Generalized anxiety disorder Category: Medical (9) Difficulty sleeping: Code(s): G47.9 - Sleep disorder, unspecified Category: Medical (10) LFT elevation: Code(s): R79.89 - Other specified abnormal findings of blood chemistry Category: Medical Plan f/u apt - The patient is a 58-year-old female presenting for follow-up - Recent lab work conducted indicated an A1c level of 6.4% and elevated liver enzymes from March. - Patient was advised to discontinue pravastatin in March due to concerns over liver function. she has restarted it again, LFT update levels not available, we will keep an eye on those - Medication regimen includes Amlodipine, Lexapro, Zetia, and Lisinopril, reflecting ongoing management for hypertension and hyperlipidemia. - Reports excellent blood pressure control and no current abdominal complaints. - Mention of previously experienced ankle swelling, managed effectively with diabetic socks rather than elastic socks. Problem List - Essential Hypertension - Type 2 Diabetes Mellitus - Hyperlipidemia - Elevated Liver Enzymes - obesity Patient Instructions - Continue with current medications including Amlodipine, Lexapro, Zetia, and Lisinopril. - Monitor blood pressure regularly as advised. - Maintain use of diabetic socks to manage leg swelling. - Attend the scheduled follow-up appointment on October 13 for physical examination. - Keep a record of any new or worsening symptoms and report them during the next visit. Orders: Orders Complete Blood Count Auto Diff 3 Months E03.8 - Other specified hypothyroidism, E10.29 - Type 1 diabetes mellitus with other diabetic kidney complication, E13.9 - Other specified diabetes mellitus without complications, E66.01 - Morbid (severe) obesity due to excess calories, E78.9 - Disorder of lipoprotein metabolism, unspecified, F41.1 - Generalized anxiety disorder, G47.9 - Sleep disorder, unspecified, I10 - Essential (primary) hypertension, R79.89 - Other specified abnormal findings of blood chemistry, R80.9 - Proteinuria, unspecified, Z68.37 - Body mass index [BMI] 37.0-37.9, adult, Z91.09 - Other allergy status, other than to drugs and biological substances Hemoglobin A1c 3 Months E13.9 - Other specified diabetes mellitus without complications Comprehensive Met. Panel 3 Months E03.8 - Other specified hypothyroidism, E10.29 - Type 1 diabetes mellitus with other diabetic kidney complication, E13.9 - Other specified diabetes mellitus without complications, E66.01 - Morbid (severe) obesity due to excess calories, E78.9 - Disorder of lipoprotein metabolism, unspecified, F41.1 - Generalized anxiety disorder, G47.9 - Sleep disorder, unspecified, I10 - Essential (primary) hypertension, R79.89 - Other specified abnormal findings of blood chemistry, R80.9 - Proteinuria, unspecified, Z68.37 - Body mass index [BMI] 37.0-37.9, adult, Z91.09 - Other allergy status, other than to drugs and biological substances Medications: Refilled amlodipine 10 mg PO DAILY 90 tabs 0RF escitalopram oxalate (Lexapro) 10 mg PO DAILY 90 tabs 0RF mirtazapine 15 mg PO BEDTIME 30 tabs 0RF To sleep glipizide-metformin 2.5-250 mg 1 tab PO DAILY 90 tabs 0RF E13.9 - Other specified diabetes mellitus without complications ezetimibe 10 mg PO DAILY 90 tabs 0RF lisinopril 40 mg PO DAILY 90 tabs 0RF E13.9 - Other specified diabetes mellitus without complications, I10 - Essential (primary) hypertension
== END 2024-07-20 14:04 | disposition home or self-care (01) ==
LOC: HO.HMCC 13:11
PROVIDERS: PCP Internal Medicine; Visit Provider Internal Medicine
DX: E13.9 Other specified diabetes mellitus without complications (principal); E78.9 Disorder of lipoprotein metabolism, unspecified; I10 Essential (primary) hypertension; Z91.09 Other allergy status, other than to drugs and biological substances; E10.29 Type 1 diabetes mellitus with other diabetic kidney complication; R80.9 Proteinuria, unspecified; E03.8 Other specified hypothyroidism; E66.01 Morbid (severe) obesity due to excess calories; Z68.37 Body mass index [BMI] 37.0-37.9, adult; F41.1 Generalized anxiety disorder; G47.9 Sleep disorder, unspecified; R79.89 Other specified abnormal findings of blood chemistry

== ENCOUNTER 2024-10-13 15:22 | Outpatient (AMB) | payer OTHER, SELFPAY ==
--- NOTE | 2024-10-13 15:23 | A.OFFPC_ITS ---
Vital Signs 10/13/24 15:24 Height 5 ft 1 in Weight 199 lb BMI 37.6 BP 120/74 Blood Pressure Location Rt brachial Position Sitting Respiration 15 Pulse 103 H Pulse Source Pulse Oximeter Temp 98.9 F Pulse Oximetry (%) 98 Oxygen Delivery Method Room Air Intake Visit Reasons: PE Allergies No Known Drug Allergies (NO KNOWN DRUG ALLERGIES) Allergy (Mild, Verified 10/13/24 15:24) NONE Seasonal Allergy (Unknown, Uncoded 10/13/24 15:24) unknown Medication List - Last Reconciled 10/13/24 by Jaqui Fofana MD amlodipine 10 mg PO DAILY blood-glucose meter (FreeStyle Lite Meter kit) As directed escitalopram oxalate (Lexapro) 10 mg PO DAILY ezetimibe 10 mg PO DAILY FreeStyle Lite Strips (blood sugar diagnostic) test blood sugar once a day NS glipizide-metformin 2.5-250 mg 1 tab PO DAILY lancets (FreeStyle Lancets) Test blood sugar once a day lisinopril 40 mg PO DAILY mirtazapine 15 mg PO BEDTIME pravastatin 40 mg PO DAILY 90 days Tobacco use date assessed: 10/13/24 Dental Screening Dental Screen Date: 10/13/24 Did you have a dental visit in the last 12 months?: Yes Did you have a dental problem in the last 6 months where you did not have access to dental care?: No Was dental information given to patient?: Patient has dentist HPI PE HPI Details Physical exam - The patient is a 58-year-old female pr esenting for physical exam Allergies and allergic rhinitis, has been acting up these days, patient has tried [id number] long-acting antihistamine which did not work Presenting with postnasal drip and nasal congestion and sneezing I have sent montelukast 10 mg that she is to start taking 1 a day - Diarrhea: The patient reports experien cing diarrhea starting this morning, with a transition from soft stool to loose stool. She denies any unusual dietary intake prior to the onset. The diarrhea occurs intermittently. - Knee pain: The patient reports knee pa in following a fall in March, which sometimes affects the back of her leg. She uses topical cream for relief. - Type 2 Diabetes Mellitus: The patient' s A1c was 6.4 in March and has improved to 6.0. She is on metformin and glipizide for management. - Hyperlipidemia: The patient is on prav astatin and Zetia for management. - Depression: The patient is on Zoloft a nd mirtazapine for management. - Hypertension: The patient is on lisino pril and amlodipine for management. - Preventative care: The patient has not had a mammogram in a long time due to personal circumstances and is considering scheduling one. She is also considering a colonoscopy. Health Maintenance - Mammogram: Patient has not had a recen t mammogram , she does not want to scheduled 1 yet she will get back to me - Colonoscopy: Declined colonoscopy as well patient will get back to me - do not want to see OBGYN at this time. Medications - Metformin: For management of Type 2 Di abetes Mellitus. - Glipizide: For management of Type 2 Di abetes Mellitus. - Pravastatin: For management of Hyperli pidemia. - Zetia: For management of Hyperlipidemi a. - Zoloft: For management of Depression. - Mirtazapine: For management of Depress ion. - Lisinopril: For management of Hyperten nelda. - Amlodipine: For management of Hyperten nelda. Patient Instructions - Schedule a mammogram and colonoscopy w hen ready. - Start taking Montelukast once daily fo r allergies. - Continue current medications for diabe barbara, hyperlipidemia, depression, and hypertension. - follow-up in January, labs are needed before visit and physical exam in 1 year Review of Systems - General: No fever no chills - Neurological: No headaches no dizzin ess - Ear nose throat: No sore throat no hearing difficulty no ear pain - Cardiovascular: No syncope, no chest pain, no palpitations - Gastrointestinal: No nausea vomiting or diarrhea - Endocrine: No polyuria polydipsia no heat intolerance - Genitourinary: No dysuria - Skin: No new complaints Physical Exam General: Cooperative, healthy appearing, comfortable, no acute distress Orientation: Patient oriented x3 Head: Normal to inspection Ears: Within normal limit visually Nose: Stuffy nose present Face and sinus: Sinus allergy present Eyes: Watery eyes, extraocular movement intact, pupils reactive Neck: Normal visual inspection and supple Respiratory: Normal respiratory effort and able to speak in complete sentences. Clear to auscultation, no stridor Cardiovascular: S1 and S2 RRR Breast exam benign GI: soft to palpation and nontender Skin: Turgor normal, no acute findings Neuro: Patient oriented x3, motor sensory intact, balance intact, tandem failed Extremities: Normal to inspection, range of motion intact [facility] Medical History Environmental allergies Hypertension, essential Lipid disorder Diabetes 1.5, managed as type 2 Surgical History Hx of surgical procedure (02/24/23) History of section Family History Father Rheumatoid arthritis Mother HTN (hypertension) CVD (cardiovascular disease) Diabetes mellitus Brother No problems noted. Daughter No problems noted. Daughter No problems noted. Maternal Grandfather No problems noted. Maternal Grandmother No problems noted. Paternal Grandfather No problems noted. Paternal Grandmother No problems noted. Social History Housing: Apartment Alcohol intake: former Patient Tobacco Use Status: Never used Tobacco e-Cigarette/Vaping Use: Never Used service: No Current occupational status: unemployed and other (homemaker) Cognitive needs: No Hearing needs: No Vision needs: Yes Questionnaire Thrive Questionnaire Date Thrive assessed: 07/17/24 I am a: Patient What is your living situation today?: I have a steady place to live Within the past 12 months, did the food you bought not last and you didn't have the money to get more?: Never true Within the past 12 months, did you worry whether your food would run out before you got money to buy more?: Never true Do you have trouble paying for medicines?: No Do you have trouble getting transportation to medical appointments?: No Do you have trouble paying your heating and electricity bill?: No Do you have trouble taking care of your child, family member or friend?: No Do you have trouble with day-to-day activities such as bathing, preparing meals, shopping, managing finances, etc.?: No Are you currently unemployed and looking for a job?: No Are you interested in more education?: No Please select the resources that you would like help with: None Currently or been in a relationship where the following occur: No concerns reported THRIVE Score: 0 MAIDA-7 AMB Questionnaire MAIDA-7 Date MAIDA - 7 assessed: 07/20/24 Source: Developed by Drs. Orlin Bone, Kalani Gregory, Liang Littlejohn and colleagues, with an educational jeffrey from [employer]. Physical exam (Primary Care) Vital Signs: Last Vital Signs Temp 98.9 F 10/13/24 15:24 Pulse 103 H 10/13/24 15:24 Resp 15 10/13/24 15:24 BP 120/74 10/13/24 15:24 Pulse Ox 98 10/13/24 15:24 Oxygen Delivery Method Room Air 10/13/24 15:24 BMI result Body Mass Index 37.6 Tobacco/Smoking Status: Tobacco use Status Tobacco use date assessed 10/13/24 10/13/24 15:27 Patient Tobacco Use Status Never used Tobacco 10/13/24 15:27 e-Cigarette/Vaping Use Never Used 10/13/24 15:27 Thrive Assessment: Date of Thrive Assessment Date Thrive assessed 07/17/24 10/13/24 15:27 Currently or been in a relationship where the following occur: No concerns reported Results AMB Hemoglobin A1c AMB Hemoglobin A1c 6.0 % Last Edit by Teresa Garcia CMA on 10/13/24 15:38 Results Reviewed Results Reviewed: Laboratory Last Values Hgb A1c (Clinic) 6.0 % (4.0-6.0) 10/13/24 15:35 Coding Level of Care Code Est Pt Level 3 (20153) Est Pt Prev Care 40-64y(55161) Diagnoses Encounter for general adult medical examination with abnormal findings Z00.01 Environmental allergies Z91.09 Hypertension, essential I10 Lipid disorder E78.9 Diabetes 1.5, 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 1 diabetes mellitus E10.29; R80.9 Other specified hypothyroidism E03.8 Learning disability F81.9 Anxiety, generalized F41.1 Depression, major, single episode, moderate F32.1 Microalbuminuria R80.9 Assessment & Plan Assessment & Plan (1) Encounter for general adult medical examination with abnormal findings: Code(s): Z00.01 - Encounter for general adult medical examination with abnormal findings Category: Medical (2) Environmental allergies: Code(s): Z91.09 - Other allergy status, other than to drugs and biological substances Category: Medical (3) Hypertension, essential: Code(s): I10 - Essential (primary) hypertension Category: Medical (4) Lipid disorder: Code(s): E78.9 - Disorder of lipoprotein metabolism, unspecified Category: Medical (5) Diabetes 1.5, managed as type 2: Code(s): E13.9 - Other specified diabetes mellitus without complications Category: Medical (6) Microalbuminuria due to type 1 diabetes mellitus: Code(s): E10.29 - Type 1 diabetes mellitus with other diabetic kidney complication; R80.9 - Proteinuria, unspecified Category: Medical (7) Other specified hypothyroidism: Code(s): E03.8 - Other specified hypothyroidism Category: Medical (8) Learning disability: Code(s): F81.9 - Developmental disorder of scholastic skills, unspecified Category: Social Hx (9) Anxiety, generalized: Code(s): F41.1 - Generalized anxiety disorder Category: Medical (10) Depression, major, single episode, moderate: Code(s): F32.1 - Major depressive disorder, single episode, moderate Category: Medical (11) Microalbuminuria: Code(s): R80.9 - Proteinuria, unspecified Category: Medical Plan Physical exam - The patient is a 58-year-old female presenting for physical exam Allergies and allergic rhinitis, has been acting up these days, patient has tried [id number] long-acting antihistamine which did not work Presenting with postnasal drip and nasal congestion and sneezing I have sent montelukast 10 mg that she is to start taking 1 a day - Diarrhea: The patient reports experiencing diarrhea starting this morning, with a transition from soft stool to loose stool. She denies any unusual dietary intake prior to the onset. The diarrhea occurs intermittently. - Knee pain: The patient reports knee pain following a fall in March, which sometimes affects the back of her leg. She uses topical cream for relief. - Type 2 Diabetes Mellitus: The patient's A1c was 6.4 in March and has improved to 6.0. She is on metformin and glipizide for management. - Hyperlipidemia: The patient is on pravastatin and Zetia for management. - Depression: The patient is on Zoloft and mirtazapine for management. - Hypertension: The patient is on lisinopril and amlodipine for management. - Preventative care: The patient has not had a mammogram in a long time due to personal circumstances and is considering scheduling one. She is also considering a colonoscopy. Health Maintenance - Mammogram: Patient has not had a recent mammogram , she does not want to scheduled 1 yet she will get back to me - Colonoscopy: Declined colonoscopy as well patient will get back to me - do not want to see OBGYN at this time. Medications - Metformin: For management of Type 2 Diabetes Mellitus. - Glipizide: For management of Type 2 Diabetes Mellitus. - Pravastatin: For management of Hyperlipidemia. - Zetia: For management of Hyperlipidemia. - Zoloft: For management of Depression. - Mirtazapine: For management of Depression. - Lisinopril: For management of Hypertension. - Amlodipine: For management of Hypertension. Patient Instructions - Schedule a mammogram and colonoscopy when ready. - Start taking Montelukast once daily for allergies. - Continue current medications for diabetes, hyperlipidemia, depression, and hypertension. - follow-up in January, labs are needed before visit and physical exam in 1 year Orders: Orders AMB Hemoglobin A1c Today E13.9 - Other specified diabetes mellitus without complications Hemoglobin A1c Today E03.8 - Other specified hypothyroidism, E13.9 - Other s pecified diabetes mellitus without complications, E78.9 - Disorder of lipoprotein metabolism, unspecified, F32.1 - Major depressive disorder, single episode, moderate, F41.1 - Generalized anxiety disorder, I10 - Essential (primary) hypertension, Z00.01 - Encounter for general adult medical examination with abnormal findings Complete Blood Count Auto Diff Today E03.8 - Other specified hypothyroidism, E13.9 - Other specified diabetes mellitus without complications, E78.9 - Disorder of lipoprotein metabolism, unspecified, F32.1 - Major depressive disorder, single episode, moderate, F41.1 - Generalized anxiety disorder, I10 - Essential (primary) hypertension, Z00.01 - Encounter for general adult medical examination with abnormal findings Comprehensive Met. Panel Today E03.8 - Other specified hypothyroidism, E13.9 - Other specified diabetes mellitus without complications, E78.9 - Disorder of lipoprotein metabolism, unspecified, F32.1 - Major depressive disorder, single episode, moderate, F41.1 - Generalized anxiety disorder, I10 - Essential (primary) hypertension, Z00.01 - Encounter for general adult medical examination with abnormal findings LDL Cholesterol Direct Today E03.8 - Other specified hypothyroidism, E13.9 - Other specified diabetes mellitus without complications, E78.9 - Disorder of lipoprotein metabolism, unspecified, F32.1 - Major depressive disorder, single episode, moderate, F41.1 - Generalized anxiety disorder, I10 - Essential (primary) hypertension, Z00.01 - Encounter for general adult medical examination with abnormal findings TSH reflex Free T4 Today E03.8 - Other specified hypothyroidism, E13.9 - Other specified diabetes mellitus without complications, E78.9 - Disorder of lipoprotein metabolism, unspecified, F32.1 - Major depressive disorder, single episode, moderate, F41.1 - Generalized anxiety disorder, I10 - Essential (primary) hypertension, Z00.01 - Encounter for general adult medical examination with abnormal findings Microalbumin, Random (w Creat) Today R80.9 - Proteinuria, unspecified Medications: New montelukast (Singulair) 10 mg PO QPM 90 tabs 0RF Refilled pravastatin 40 mg PO DAILY 90 tabs 0RF 90 days E78.9 - Disorder of lipoprotein metabolism, unspecified
[2024-10-13 15:24] VITALS: BP 120/74; PULSE 103; RESP 15; TEMP 37.2; O2SAT 98; BMI 37.6
== END 2024-10-13 15:49 | disposition home or self-care (01) ==
LOC: HO.HMCC 15:22
PROVIDERS: PCP Internal Medicine; Visit Provider Internal Medicine
DX: Z00.01 Encounter for general adult medical examination with abnormal findings (principal); E10.29 Type 1 diabetes mellitus with other diabetic kidney complication; F32.1 Major depressive disorder, single episode, moderate; I10 Essential (primary) hypertension; Z91.09 Other allergy status, other than to drugs and biological substances; E78.9 Disorder of lipoprotein metabolism, unspecified; R80.9 Proteinuria, unspecified; E03.8 Other specified hypothyroidism; F81.9 Developmental disorder of scholastic skills, unspecified; F41.1 Generalized anxiety disorder

== ENCOUNTER → 2024-10-13 15:22 | Outpatient (BNVA) | payer OTHER, SELFPAY | PROVIDERS: PCP Internal Medicine; Visit Provider Internal Medicine | DX: Z00.01 Encounter for general adult medical examination with abnormal findings (principal); J30.9 Allergic rhinitis, unspecified; R19.7 Diarrhea, unspecified; M25.569 Pain in unspecified knee; E11.29 Type 2 diabetes mellitus with other diabetic kidney complication; E78.5 Hyperlipidemia, unspecified; F32.A Depression, unspecified; E78.9 Disorder of lipoprotein metabolism, unspecified; I10 Essential (primary) hypertension; R80.9 Proteinuria, unspecified; E03.8 Other specified hypothyroidism; F81.9 Developmental disorder of scholastic skills, unspecified; F41.1 Generalized anxiety disorder; F32.1 Major depressive disorder, single episode, moderate; Z91.09 Other allergy status, other than to drugs and biological substances | CPT/HCPCS: 83036; 99212; 99396 ==

== ENCOUNTER 2025-02-16 13:16 | Outpatient (REF) | payer OTHER, SELFPAY ==
[2025-02-16 15:58] LABS: MANUAL DIFF FLAG NO
[2025-02-16 16:02] LABS: Hematocrit 37.9 % (37.0-47.0); Hemoglobin 12.4 g/dl (12.0-16.0); Imm Gran Abs Auto 0.02 X10*3/uL (0.00-0.03); Imm Gran Pct Auto 0.2 % (0.0-0.4); Lymphocytes Absolute Auto 1.6 X10*3/uL (1.2-4.9); Mean Corpuscular HGB Conc 32.7 g/dl (31.0-35.0); Mean Corpuscular Hemoglobin 28.3 pg (27.0-33.0); Mean Corpuscular Volume 86.5 fL (80.0-98.0); NRBC Abs Auto 0.000 X10*3/uL (0.0-0.012); NRBC Pct Auto 0.0 /100WBC (0.0-0.2); Platelet Count 232 X10*3/uL (160-400); Red Blood Count 4.38 X10*6/uL (4.20-5.50); White Blood Count 8.0 X10*3/uL (4.8-10.8)
[2025-02-16 16:25] LABS: Alanine Aminotransferase 33 U/L (0-31); Albumin Level 4.3 g/dL (3.5-5.0); Alkaline Phosphatase 88 U/L (39-117); Anion Gap 12 (12-20); Aspartate Amino Transferase 38 U/L (5-31); Blood Urea Nitrogen 14 mg/dL (9-16); Calcium 9.4 mg/dL (8.4-10.2); Carbon Dioxide 26 mmol/L (22-29); Chloride 106 mmol/L (96-108); Estimated Glomerular Filt Rate > 60; Potassium 4.5 mmol/L (3.3-5.1); Sodium 139 mmol/L (135-145); Total Protein 7.1 g/dL (6.5-8.0)
[2025-02-16 16:32] LABS: Microalbum/Creatinine Ratio Ur 343.9 ug/mg cr (<30)
== END 2025-02-16 13:17 | disposition home or self-care (01) ==
LOC: HO.HMGCLDS 13:16
PROVIDERS: PCP Internal Medicine; Visit Provider Internal Medicine
DX: Z00.01 Encounter for general adult medical examination with abnormal findings (principal); I10 Essential (primary) hypertension; E78.9 Disorder of lipoprotein metabolism, unspecified; F41.1 Generalized anxiety disorder; F32.1 Major depressive disorder, single episode, moderate; E03.8 Other specified hypothyroidism; R80.9 Proteinuria, unspecified; E10.29 Type 1 diabetes mellitus with other diabetic kidney complication; E66.01 Morbid (severe) obesity due to excess calories; Z68.37 Body mass index [BMI] 37.0-37.9, adult; R79.89 Other specified abnormal findings of blood chemistry; G47.9 Sleep disorder, unspecified; Z91.09 Other allergy status, other than to drugs and biological substances
CPT/HCPCS: 36415; 80053; 82043; 82570; 83036; 83721; 84443; 85025; 99212

== ENCOUNTER 2025-02-16 13:32 | Outpatient (AMB) | payer OTHER, SELFPAY ==
[2025-02-16 13:14] VITALS: BP 150/70; PULSE 91; RESP 16; TEMP 37.2; O2SAT 97; BMI 38.9
--- NOTE | 2025-02-16 13:14 | A.OFFPC_ITS ---
Vital Signs 02/16/25 13:14 Height 5 ft 1 in Intake Visit Reasons: 4m f/u- repeat A1C Allergies No Known Drug Allergies (NO KNOWN DRUG ALLERGIES) Allergy (Mild, Verified 02/16/25 13:15) NONE Seasonal Allergy (Unknown, Uncoded 10/13/24 15:24) unknown Tobacco use date assessed: 10/13/24 Dental Screening Dental Screen Date: 10/13/24 [facility] Medical History Environmental allergies Hypertension, essential Lipid disorder Diabetes 1.5, managed as type 2 Surgical History Hx of surgical procedure (02/24/23) History of section Family History Father Rheumatoid arthritis Mother HTN (hypertension) CVD (cardiovascular disease) Diabetes mellitus Brother No problems noted. Daughter No problems noted. Daughter No problems noted. Maternal Grandfather No problems noted. Maternal Grandmother No problems noted. Paternal Grandfather No problems noted. Paternal Grandmother No problems noted. Social History Housing: Apartment Alcohol intake: former Patient Tobacco Use Status: Never used Tobacco e-Cigarette/Vaping Use: Never Used service: No Current occupational status: unemployed and other (homemaker) Cognitive needs: No Hearing needs: No Vision needs: Yes Questionnaire Thrive Questionnaire Date Thrive assessed: 07/17/24 I am a: Patient What is your living situation today?: I have a steady place to live Within the past 12 months, did the food you bought not last and you didn't have the money to get more?: Never true Within the past 12 months, did you worry whether your food would run out before you got money to buy more?: Never true Do you have trouble paying for medicines?: No Do you have trouble getting transportation to medical appointments?: No Do you have trouble paying your heating and electricity bill?: No Do you have trouble taking care of your child, family member or friend?: No Do you have trouble with day-to-day activities such as bathing, preparing meals, shopping, managing finances, etc.?: No Are you currently unemployed and looking for a job?: No Are you interested in more education?: No Please select the resources that you would like help with: None Currently or been in a relationship where the following occur: No concerns reported THRIVE Score: 0 MAIDA-7 AMB Questionnaire MAIDA-7 Date MAIDA - 7 assessed: 07/20/24 Source: Developed by Drs. Orlin Bone, Kalani Gregory, Liang Littlejohn and colleagues, with an educational jeffrey from [employer]. Physical exam (Primary Care) Tobacco/Smoking Status: Tobacco use Status Tobacco use date assessed 10/13/24 10/13/24 15:27 Patient Tobacco Use Status Never used Tobacco 10/13/24 15:27 e-Cigarette/Vaping Use Never Used 10/13/24 15:27 Thrive Assessment: Date of Thrive Assessment Date Thrive assessed 07/17/24 10/13/24 15:27 Currently or been in a relationship where the following occur: No concerns reported Coding
--- NOTE | 2025-02-16 13:45 | A.OFFPC_ITS ---
Vital Signs 02/16/25 13:14 02/16/25 13:59 Height 5 ft 1 in Weight 206 lb BMI 38.9 BP 150/70 H 138/88 Blood Pressure Location Lt brachial Position Sitting Respiration 16 Pulse 91 Pulse Source Pulse Oximeter Temp 99 F Temp Source Oral Pulse Oximetry (%) 97 Oxygen Delivery Method Room Air Intake Visit Reasons: 4m f/u- repeat A1C Allergies No Known Drug Allergies (NO KNOWN DRUG ALLERGIES) Allergy (Mild, Verified 02/16/25 13:15) NONE Seasonal Allergy (Unknown, Uncoded 10/13/24 15:24) unknown Medication List - Last Reconciled 02/16/25 by Jaqui Fofana MD amlodipine 10 mg PO DAILY blood-glucose meter (FreeStyle Lite Meter kit) As directed escitalopram oxalate (Lexapro) 10 mg PO DAILY ezetimibe 10 mg PO DAILY FreeStyle Lite Strips (blood sugar diagnostic) test blood sugar once a day NS glipizide-metformin 2.5-250 mg 1 tab PO DAILY lancets (FreeStyle Lancets) Test blood sugar once a day lisinopril 40 mg PO DAILY mirtazapine 15 mg PO BEDTIME montelukast (Singulair) 10 mg PO QPM pravastatin 40 mg PO DAILY 90 days Tobacco use date assessed: 10/13/24 Dental Screening Dental Screen Date: 10/13/24 HPI 4m f/u- repeat A1C HPI Details History of Present Illness The patient is a 59 year old female presenting for a regular follow-up appointment. Hypertension: - The patient is on amlodipine 10 mg and lisinopril 40 mg for management of hypertension. Hyperlipidemia: - The patient takes pravastatin 40 mg fo r cholesterol management. Diabetes Mellitus: - The patient has a history of diabetes mellitus and is due for a hemoglobin A1c test today. Anxiety: - The patient takes 'bestelopril' for an xiety. Medication Adherence: - The patient is tolerating all her medi cations without any side effects. Started wearing [id number] compression stockings and is feeling much better Patient has a history of varicose veins she is able to walk without discomfort now Problem List - Hypertension - Hyperlipidemia - Diabetes Mellitus - Anxiety - Preventative care: Follow-up appointme nt Plan - Continue current medications - Blood tests, including a hemoglobin A1 c, were performed today. Hemoglobin A1c stable in 6 range - Monitor the results of the labs drawn today. - The patient will return for a follow-u p appointment in May. - continue wearing compression stocking when walking Review of Systems - General: No fever no chills - Neurological: No headaches no dizziness - Ear nose throat: No sore throat no hearing difficulty no ear pain - Cardiovascular: No syncope, no chest pain, no palpitations - Gastrointestinal: No nausea vomiting or diarrhea - Endocrine: No polyuria polydipsia no heat intolerance - Genitourinary: No dysuria , no blood in urine Physical Exam - General: No acute distress - HEENT: No acute findings - Neck: Supple - Respiratory system: Able to talk in f ull sentences, no audible wheeze - Cardiovascular: S1-S2 regular in rate and rhythm - Gastrointestinal: No pain - Extremities: No new findings - [employer]: Alert awake oriented x3 motor in tact - Skin: Normal turgor PFSH Medical History Environmental allergies Hypertension, essential Lipid disorder Diabetes 1.5, managed as type 2 Surgical History Hx of surgical procedure (02/24/23) History of section Family History Father Rheumatoid arthritis Mother HTN (hypertension) CVD (cardiovascular disease) Diabetes mellitus Brother No problems noted. Daughter No problems noted. Daughter No problems noted. Maternal Grandfather No problems noted. Maternal Grandmother No problems noted. Paternal Grandfather No problems noted. Paternal Grandmother No problems noted. Social History Housing: Apartment Alcohol intake: former Patient Tobacco Use Status: Never used Tobacco e-Cigarette/Vaping Use: Never Used service: No Current occupational status: unemployed and other (homemaker) Cognitive needs: No Hearing needs: No Vision needs: Yes Questionnaire Thrive Questionnaire Date Thrive assessed: 07/17/24 I am a: Patient What is your living situation today?: I have a steady place to live Within the past 12 months, did the food you bought not last and you didn't have the money to get more?: Never true Within the past 12 months, did you worry whether your food would run out before you got money to buy more?: Never true Do you have trouble paying for medicines?: No Do you have trouble getting transportation to medical appointments?: No Do you have trouble paying your heating and electricity bill?: No Do you have trouble taking care of your child, family member or friend?: No Do you have trouble with day-to-day activities such as bathing, preparing meals, shopping, managing finances, etc.?: No Are you currently unemployed and looking for a job?: No Are you interested in more education?: No Please select the resources that you would like help with: None Currently or been in a relationship where the following occur: No concerns reported THRIVE Score: 0 MAIDA-7 AMB Questionnaire MAIDA-7 Date MAIDA - 7 assessed: 07/20/24 Source: Developed by Drs. Orlin Bone, Kalani Gregory, Liang Littlejohn and colleagues, with an educational jeffrey from [employer]. Physical exam (Primary Care) Vital Signs: Last Vital Signs Temp 99 F 02/16/25 13:14 Pulse 91 02/16/25 13:14 Resp 16 02/16/25 13:14 BP 138/88 02/16/25 13:59 Pulse Ox 97 02/16/25 13:14 Oxygen Delivery Method Room Air 02/16/25 13:14 BMI result Body Mass Index 38.9 Tobacco/Smoking Status: Tobacco use Status Tobacco use date assessed 10/13/24 02/16/25 13:54 Patient Tobacco Use Status Never used Tobacco 02/16/25 13:54 e-Cigarette/Vaping Use Never Used 02/16/25 13:54 Thrive Assessment: Date of Thrive Assessment Date Thrive assessed 07/17/24 02/16/25 13:54 Currently or been in a relationship where the following occur: No concerns reported Results AMB Hemoglobin A1c AMB Hemoglobin A1c 6.5 % Last Edit by Lalo Newell MA on 02/16/25 14:30 Results Reviewed Results Reviewed: Laboratory Last Values Hgb A1c (Clinic) 6.5 % (4.0-6.0) H 02/16/25 01:44 Coding Level of Care Code Est Pt Level 4 (47916) Complex EM visit Add On G2211 Diagnoses Hypertension, essential I10 Lipid disorder E78.9 Diabetes 1.5, 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 1 diabetes mellitus E10.29; R80.9 Other specified hypothyroidism E03.8 Learning disability F81.9 Anxiety, generalized F41.1 Depression, major, single episode, moderate F32.1 Microalbuminuria R80.9 Assessment & Plan Assessment & Plan (1) Hypertension, essential: Code(s): I10 - Essential (primary) hypertension Category: Medical (2) Lipid disorder: Code(s): E78.9 - Disorder of lipoprotein metabolism, unspecified Category: Medical (3) Diabetes 1.5, managed as type 2: Code(s): E13.9 - Other specified diabetes mellitus without complications Category: Medical (4) Microalbuminuria due to type 1 diabetes mellitus: Code(s): E10.29 - Type 1 diabetes mellitus with other diabetic kidney complication; R80.9 - Proteinuria, unspecified Category: Medical (5) Other specified hypothyroidism: Code(s): E03.8 - Other specified hypothyroidism Category: Medical (6) Learning disability: Code(s): F81.9 - Developmental disorder of scholastic skills, unspecified Category: Social Hx (7) Anxiety, generalized: Code(s): F41.1 - Generalized anxiety disorder Category: Medical (8) Depression, major, single episode, moderate: Code(s): F32.1 - Major depressive disorder, single episode, moderate Category: Medical (9) Microalbuminuria: Code(s): R80.9 - Proteinuria, unspecified Category: Medical Plan Hypertension: - The patient is on amlodipine 10 mg and lisinopril 40 mg for management of hypertension. Hyperlipidemia: - The patient takes pravastatin 40 mg for cholesterol management. Diabetes Mellitus: - The patient has a history of diabetes mellitus and is due for a hemoglobin A1c test today. Anxiety: - The patient takes 'bestelopril' for anxiety. Medication Adherence: - The patient is tolerating all her medications without any side effects. Started wearing [id number] compression stockings and is feeling much better Patient has a history of varicose veins she is able to walk without discomfort now Problem List - Hypertension - Hyperlipidemia - Diabetes Mellitus - Anxiety - Preventative care: Follow-up appointment - learning disability - obesity with BMI of 38.9 Plan - Continue current medications - Blood tests, including a hemoglobin A1c, were performed today. Hemoglobin A1c stable in 6 range - Monitor the results of the labs drawn today. - The patient will return for a follow-up appointment in May. - continue wearing compression stocking when walking
[2025-02-16 13:59] VITALS: BP 138/88
== END 2025-02-16 14:01 | disposition home or self-care (01) ==
LOC: HO.HMCC 13:33
PROVIDERS: PCP Internal Medicine; Visit Provider Internal Medicine
DX: I10 Essential (primary) hypertension (principal); E10.29 Type 1 diabetes mellitus with other diabetic kidney complication; F32.1 Major depressive disorder, single episode, moderate; E78.9 Disorder of lipoprotein metabolism, unspecified; R80.9 Proteinuria, unspecified; E03.8 Other specified hypothyroidism; F81.9 Developmental disorder of scholastic skills, unspecified; F41.1 Generalized anxiety disorder